=== PATIENT | female | born 1970 | race African-American/Black ===

== ENCOUNTER 2020-04-15 17:38 | Emergency (ER) | payer OTHER, SELFPAY ==
[2020-04-15 17:50] VITALS: BP 122/97; PULSE 84; RESP 16; TEMP 36.3; O2SAT 100
--- NOTE | 2020-04-15 18:02 | ED.WOUNDLAC ---
HPI - Wound/Laceration General Chief Complaint: Wound/Laceration Stated Complaint: Foreign Abcess/ear pain Source: patient and RN notes reviewed Mode of arrival: ambulatory Limitations: no limitations History of Present Illness HPI narrative: The obese patient, previously mostly healthy, presents with skin eruption. Patient states she has 1/2-month history of pink, tender, slightly raised inflammation where she shaves on her buttocks. They have spontaneously improved or ruptured with soaks and tea tree oil--but are still slightly inflamed,like a prior episode she had anteriorly along her perineum. No fever, streaking, fluctuance/induration; symptoms mild worse with palpation Related Data Home Medications Medication Instructions Recorded Confirmed levothyroxine 150 mcg tablet 150 mcg PO DAILY 10/20/19 04/15/20 Allergies Allergy/AdvReac Type Severity Reaction Status Date / Time aspirin AdvReac Mild STOMACH Verified 10/20/19 15:13 ISSUES ibuprofen AdvReac Mild ACID REFLUX Verified 10/20/19 15:13 Review of Systems Review of Systems: Narrative: General/Constitutional: No weight loss,fever Eyes: N0: Redness,discharge Ears/Nose/Throat: No: Epistaxis,ear discharge Respiratory: Denies: Hemoptysis Gastrointestinal: No Vomiting, Bleeding-rectal Skin: No Lumps, eruption Neurologic: No Focal Weakness,Sz Hematologic: Denies: Petechiae/Purpura Psychiatric: No: Suicida ideationl All Other Systems: Reviewed and Negative [facility] Social History Social History Smoking status: Never smoker Alcohol intake: current Comments At time of signature, agree with nursing past medical, surgical, social and family history. There is no relevant family history pertinent to the presenting complaint Exam Narrative: Exam Narrative: General Appearance: Cooperative Normocephalic Eye: PERRLA, Conjunctiva clear Mouth/Throat: Normal appearing Supple Respiratory: Airway patent, No respiratory distress Musculoskeletal: Moves all extremities, Non tender Skin: Warm, Dry , several small inflamed but healing gluteal follicles Neurological: A&O x3 Normal affect Course Vital Signs Vital signs: Vital Signs Temperature 97.4 F L 04/15/20 17:50 Pulse Rate 84 04/15/20 17:50 Respiratory Rate 16 04/15/20 17:50 Blood Pressure 122/97 H 04/15/20 17:50 Pulse Oximetry 100 04/15/20 17:50 Temperature 97.4 F L 04/15/20 17:50 Pulse Rate 84 04/15/20 17:50 Respiratory Rate 16 04/15/20 17:50 Blood Pressure 122/97 H 04/15/20 17:50 Pulse Oximetry 100 04/15/20 17:50 Procedures Abscess I/D other: Date of Incision: 04/15/20 Technique: needle aspiration Amount of fluid expressed (mL): 1 Irrigation: No Packing used?: none I&D Results: Pus and Blood Discharge Plan Discharge Clinical Impression: Folliculitis Patient Disposition: Home, Self-Care Condition: Stable Instructions: Antibiotic Form, Folliculitis (ED), Abscess (ED) Prescriptions: New clindamycin HCl 300 mg capsule 300 mg PO Q6H Qty: 15 RF: 0 mupirocin 2 % ointment 1 applic TOPICAL TID Qty: 30 RF: 0 No Action levothyroxine 150 mcg tablet 150 mcg PO DAILY RF: 0 Follow-up/Referrals: PHYSICIAN NOT ON STAFF,NONSTAFF [Primary Care Provider] - Discharge Date/Time: 04/15/20 18:16
== END 2020-04-15 18:16 | disposition home or self-care (01) ==
PROVIDERS: Emergency Provider Emergency Medicine
DX: L73.9 Follicular disorder, unspecified (principal); E03.9 Hypothyroidism, unspecified
CPT/HCPCS: 10140; 99213; G0463

== ENCOUNTER 2022-04-01 08:33 | Outpatient (CLI) | payer OTHER, SELFPAY ==
--- NOTE | ~2022-04-01 | MM_ITS ---
EXAMINATION: MM screening [facility] BI w linda HISTORY: Screening mammogram TECHNIQUE: Craniocaudal and mediolateral oblique 3-D tomosynthesis images were obtained and synthetic 2-D images were generated. CAD analysis was submitted and interpreted. COMPARISON: 03/07/2018, 04/30/2015, 08/09/2012 BREAST PARENCHYMAL COMPOSITION: The breasts are heterogeneously dense, which may obscure small masses . FINDINGS: There is no suspicious mass, calcification, or architectural distortion to suggest malignan cy in either breast. There has been no suspicious interval change. IMPRESSION: 1. No mammographic evidence of malignancy. 2. Recommend routine screening mammography in one year. BI-RADS Category 1: Negative Reviewed, dictated and finalized at location A.
== END 2022-04-01 08:34 | disposition home or self-care (01) ==
PROVIDERS: Visit Provider Nurse Practitioner
DX: Z12.31 Encounter for screening mammogram for malignant neoplasm of breast (principal)
CPT/HCPCS: 77063; 77067

== ENCOUNTER 2023-07-20 12:53 | Emergency (ER) | payer OTHER, SELFPAY ==
[2023-07-20 13:13] VITALS: BP 117/73; PULSE 64; RESP 16; TEMP 36.6; O2SAT 100
--- NOTE | 2023-07-20 13:15 | ED.GENADULT ---
HPI - General Adult General Chief complaint: Eye Problems Stated complaint: Left Eye Irritation, Headache,Back Irritaiton/Bump Time Seen by Provider: 07/20/23 13:15 Source: patient, RN notes reviewed and old records reviewed Mode of arrival: ambulatory Limitations: no limitations History of Present Illness HPI narrative: 52-year-old female presents to the [facility] with multiple complaints. Left eye irritation since this morning. Patient states that she looked in the urine noticed a red spot in her left eye. Denies any coughing, sneezing. Denies any blurry vision, change in vision. Denies any trauma to the eye. Headache since this morning. Took Aleve in states it is better. Denies any blurry vision, change in vision. Denies any dizziness. No sinus congestion or pain. Denies any chest pain or shortness of breath. Patient with a complaint of a swelling area to the right upper back, shoulder area, scapular area that she noticed a small 2 weeks ago. Pain when palpation and movement of the area. Area is soft, res. No ecchymosis or erythema. Related Data Home Medications Medication Instructions Recorded Confirmed levothyroxine 150 mcg tablet 150 mcg PO DAILY 10/20/19 07/20/23 empagliflozin 10 mg tablet 10 mg 07/20/23 (Jardiance) semaglutide 0.25 mg or 0.5 mg (2 mg subcut 07/20/23 mg/3 mL) subcutaneous pen injector (Ozempic) Allergies Allergy/AdvReac Type Severity Reaction Status Date / Time aspirin AdvReac Mild STOMACH Verified 07/20/23 13:34 ISSUES ibuprofen AdvReac Mild ACID REFLUX Verified 07/20/23 13:34 Review of Systems Review of Systems: All systems reviewed & are unremarkable except as noted in HPI and below Constitutional: Constitutional: Reports no additional constitutional complaints Eyes: Eyes: Reports as per HPI, Denies blind spots, Denies blurry vision, Denies eye discharge, Denies dry eyes, Denies floaters, Denies irritation, Denies itchy eyes, Denies loss of vision and Denies photophobia ENT: Reports system reviewed and no additional complaints, except as documented Cardiovascular: Cardiovascular: Reports no additional cardiovascular complaints, Denies chest pain and Denies dyspnea Respiratory: Respiratory: Reports no additional respiratory complaints, Denies chest congestion, Denies cough and Denies dyspnea Gastrointestinal: Gastrointestinal: Reports no additional gastrointestinal complaints, Denies abdominal pain, Denies nausea and Denies vomiting Musculoskeletal: Musculoskeletal: Reports no additional musculoskeletal complaints Integumentary/Breasts: Skin/Breast: Reports as per HPI Neurologic: Reports system reviewed and no additional complaints, except as documented Psychiatric: Psychiatric: Reports no additional psychiatric complaints Allergic/Immunologic: Allergic/Immunologic: Reports no additional allergic/immunologic complaints PMF Past Medical History Medical History (Updated 07/21/23 @ 12:02 by Chaparrita Mccain APRN) Thyroid disease Surgical History Surgical History History of appendectomy History of cholecystectomy Family History Family History Other Family history of lung cancer Family history of malignant neoplasm of brain Family history of malignant neoplasm of male breast Social History Social History Smoking status: Never smoker Alcohol intake: current Comments At the time of my signature, I reviewed and agree with the nursing past medical, surgical, social, and family history. There is no relevant family history pertinent to the patient complaint. Exam Const: General: cooperative, healthy appearing, comfortable, no acute distress, well developed, alert and well nourished Nutritional Appearance: well nourished Orientation/consciousness: patient oriented x3 Limitations: no
--- NOTE | 2023-07-20 13:45 | PC.NURSE ---
MID WIFE at bedside performing I&D.
== END 2023-07-20 14:01 | disposition home or self-care (01) ==
PROVIDERS: Emergency Provider Nurse Practitioner
DX: H11.32 Conjunctival hemorrhage, left eye (principal); R51.9 Headache, unspecified; D17.1 Benign lipomatous neoplasm of skin and subcutaneous tissue of trunk; E07.9 Disorder of thyroid, unspecified
CPT/HCPCS: 21931; 99212; G0463

== ENCOUNTER 2024-10-12 15:35 | Emergency (ER) | payer OTHER, SELFPAY ==
--- OUTSIDE RECORDS SUMMARY | 2024-10-12 15:37 | XMS_ITS | Referral Summary ---
Author Organization [facility] Address [address] [place] [address] Care Team Providers Care Cork Insulator Helper Name Role Phone Claudine Jimenez [employer] MECH[employer] Primary Care P barb Unavailable Source Comments [facility],non-owned Affiliates and Associated Physician Practices is amultiple site organization consisting of ambulatory clinics and hospital sitesin [place], [place], [place] and [place]. This disclosure is being madepursuant to the Care Everywhere program and may not contain all information available regarding this patient. Last updated [email or web address] Social History Tobacco Use Types Packs/Day Years Used Date Smoking Tobacco: Never Assessed Sex and Gender Information Value Date Recorded Sex Assigned at Not on file Gender Identity Not on file Sexual Orientation Not on file Plan of Treatment Not on file Procedures Procedure Name Priority Date/Time Associated Diagnosis Comments CYTOLOGY SMEAR PAP PEGGY 03/07/1997 10 :58 AM CDT from Last 3 Months or Most Recently Relevant to Health Maintenance Results * CYTOLOGY SMEAR PAP (03/07/1997 10:58 AM CDT) Result CASE NUMBER [id number] Comment: ORDERING PHYSICIAN FELISA BLAKE [facility] SPECIMEN TYPE PAP Smear Date 03/06/1997 Procedure Cervical/Endocervical, 1 smear received Specimen Adequacy Satisfactory for Evaluation Categorization Within Normal Limits Comment Inflammation Present. Sn[place]. 03/13/1997 1109 <2> Squaring Shear Operator Easton Doherty(ASCP) PAP Footnote The PAP smear is only a screening procedure to aid in the detection of cervical cancer and its precursors. It is not a diagnostic procedure and should not be used as the sole means to detect cervical cancer. Both false negative and false positive results have been experienced. MISCELLANEOUS SAMPLES / Unknown 03/07/1997 10:58 AM CDT 03/07/1997 10:58 AM CDT Historical Provider LAB - PATHOLOGY/C YTOLOGY ORDERABLES from Last 3 Months or Most Recently Relevant to Health Maintenance Care Teams Cork Insulator Helper Relationship Specialty Start Date End Date Claudine Jimenez APRN-EAN PCP - General 02/21/18
--- OUTSIDE RECORDS SUMMARY | 2024-10-12 15:37 | XMS_ITS | Data Portability ---
Author Organization [facility] Address [address] [place] [address] Care Team Providers Care News Videotape Editor Name Role Phone PHILIP VELA Primary Care Provider Assessment Encounter Date Assessment Date Assessment LastModified by Organization Details LastModified Time 07/07/2020 07/07/2020 Annual gynecological exam performed. Patient will come back in a year unless there are new symptoms. [email or web address] Not available 07/07/2020 11:49:14 02/13/2022 02/13/2022 Annual gynecological exam performed. Patient will come back in a year unless there are new symptoms. Not available 01/24/2022 16:08:38 10/08/2023 10/08/2023 Annual gynecological exam performed. Patient will come back in a year unless there are new symptoms. [email or web address] Not available 10/08/2023 09:35:27 Plan of Treatment Reminders Order Date Submit Date Provider Last Modified By Organization Details Last Modified Time Details Appointments [facility] 2024 05:30P M LUIS KEITH, DRILLER BRAKE LINING Not available Not available Not available Lab urinaly sis, dipstic k 2019 020 [email or web address] [facility], [address], [address], [place], [address], 06/23/2020 21:43:22 culture , urine 2019 020 [facility] ([facility]), [address] [facility] [address] , [address], [place], [address], 06/25/2020 06:05:39 Referral None recorde d. Procedures None recorde d. Surgeries None recorde d. Imaging MAMMO, screeni ng, digital , bilater al 2023 024 [facility], [address], [place], [address], 04/13/2024 05:00:58 MAMMO, screeni ng, bilater al 2021 022 [email or web address] [facility], [address], [place], [address], 03/24/2022 16:19:46 Medication Orders None recorde d. Patient TargetsNo targets recorded. Patient InstructionsNo instructions recorded. Reason for Referral None Reported. Results Created Date Observation Date Name Description Value Unit Range Abnormal Flag Note LastModifiedBy Organization Detail LastModifiedTime 06/23/2006/25/2020 cultu re, urine specimen source Urine - Void Not Available [facility] ([facility]) [address] [facility] [address], [place], [address], 06/25/2020 06:05:39 06/23/2006/25/2020 cultu re, urine culture, urine See Below No growt h Not Available [facility] ([facility]) [address] [facility] [address], [place], [address], 06/25/2020 06:05:39 06/23/2006/23/2020 urina lysis , dipst ick Leukocytes trace Not Available [facility] [address], [place], [address], 06/23/2020 18:12:33 06/23/2006/23/2020 urina lysis , dipst ick pH 9 Not Available [facility] [address], [place], [address], 06/23/2020 18:12:33 10/28/20 20 06/23/2020 urina lysis , dipst ick Specific [place] 1.000 Not Available [facility] [address], [place], [address], 06/23/2020 18:12:33 07/07/20 20 07/09/2020 pap, LB Pap test thin prep Negati ve for Intrae pithel ial Lesion or Malign oscar normal ACCES LENCHO #: [id number] Sourc e: Cervi rama/E ndoce rvica l LMP: 06/15 Date Taken : 07/07 Speci men Type: ThinP rep Vial Date Repor ashley: 07/09 Clini rama Data: Cytot ech: Rahat Fowler z, CT( CP) Date Repor ashley: 07/09 Speci men Adequ acy: Satis facto ry for evalu ation Endoc ervic al/tr ansfo rmati on zone compo nent prese nt Gener al Categ oriza tion: NEGAT FRIDA FOR INTRA EPITH ELIAL LESIO N OR MALIG CLAIRE This speci men has been angela zed by the ThinP rep Imagi ng Syste m, an inter activ e compu ter syste m which bridget ts the lab in the scree mariana of ThinP rep Pap Test slide sKimberley barrientos imagi ng, the slide was revie wed by a Cytot echno logis t and/o r Patho logis t. D N A A S S A Y S R E P O R T TEST NAME RESUL TS ----- ---- ----- -- HPV High Risk Scree n (TMA) ThinP rep Vial The human papil lomav irus (HPV) High Risk Scree n is an FDA-a pprov ed in-vi tro ampli fied nucle ic acid test for the quali tativ e detec tion of E6/E7 viral mRNA. Resul ts mauricio d be corre lated with patie nt prese ntati on, histo ry, cervi rama cytol ogy and other clini rama and labor atory findi ngs. See https ://ww w.hol ogic. com/s ites/ defau lt/fi les/2 018-0 3/AW- 70593 _002_ 01.pd f for jerel er infor shashi n. Test perfo rmed by [facility], [address], [place] [address] , Diallo Polk ra, DO, Labor at[facility]PowerVision Dire tor. HPV High Risk *HPV NOT DETEC ASHLEY (TYPE S 16, 18, 31, 33, 35, 39, 45, 51, 52, 56, 58, 59, 66, 68) *HPV: The human papil lomav irus (HPV) High Risk Jean-Paul benites is an FDA-a pprov ed in-vi tro ampli fied nucle ic acid test for the quali tativ e detec tion of E6/E7 viral mRNA. Resul ts shoul d be corre lated with patie nt prese ntati on, histo ry, cervi rama cytol ogy and other clini rama and labor atory findi ngs. See https ://3Funnel. Inline.me/s ites/ defau lt/fi -0 3AW- 34963 _002_ 01.pd f for jerel er infor shashi n. Test perfo rmed by [facility] [employer], [address], [place] [address] , Diallo Polk ra, DO, Labor [facility]. End of Repor t Techn ical servi marisel provi ded by [facility], [facility], [address] [place] [address] John Paul Gomes MD, Labor Pins [facility]. Case revie wed and diagn osis rende red at [facility] [facility], [address] [place] [address] John Paul Gomes MD, Labor [facility] D[facility]. CONFI DENTI AL Not Available [facility] ([facility]) [address], [place], [address], 07/09/2020 09:58:30 07/07/20 20 07/09/2020 HPV DNA, high- risk HPV high risk NOT DETECT ED normal Not Available [facility]) [address], [place], [address], 07/09/2020 09:58:31 02/14/20 22 02/13/2022 IMAGE GUIDE D PAP AND HPV REGAR DLESS image guided Pap, HPV regardless of Pap result SEE RESULT S BELOW CASE REPOR T: Cytol ogy Gynec ologi rama Repor t Case: [id number] Autho chungkamari myrna Provi edna: Elidia Melara, TANISHA Colle cted: 02/13 1408 Order ing Locat ion: [place] [facility] Recei larry: 02/14 0136 First Scree n: Nikita Robins , CT Speci men: Scree mariana Pap - Image d, Cervi x STATE MENT OF ADEQU ACY: Satis facto ry for evalu ation Trans forma tion zone compo nent prese nt FINAL DIAGN OSIS: Negat frida for Intra epith elial Lesranjeet n or Shelley salazar (NIL) . Kandace hess d by Nikita Robins , CT on 2021 at 8:38 PM ----- ----- ----- ----- ----- ----- ----- ----- ----- ----- ----- ----- ----- ----- ----- ----- ----- ---- HPV RESUL TS: HPV mRNA E6/E7 : No HPV mRNA Detec ashley NOTE: This high risk HPV mRNA assay detec ts fourt een high- risk HPV types (16, 18, 31, 33, 35, 39, 45, 51, 52, 56, 58, 59, 66, 68) witho ut diffe renti ation . COMME NT: Note: This speci men was revie wed by a Cytot echno logis t and/o r Patho logis t (as indic ated in this repor t) after evalu ation using the Thinp rep Imagi ng Syste m. CLINI RAMA INFOR MATIO N: Menst rual Statu s: LMP (if appli cable ): Clini rama Histo ry/Pr eviou s Pap: Type of Neopl abran (if appli cable ): Signi fican t Clini rama Findi ngs: Other Histo ry: Hormo shaheen (if appli cable ): PAP EDUCA SUZE L NOTE: The Pap Test is a scree mariana test with an inher ent false negat frida rate. Liqui d-bas ed sampl ing may decre ase, but will not elimi chele, false negat frida resul ts. A negat frida resul t does not precl ude the prese nce and/o r devel opmen t of disea se, since the prese nce of abnor mal cells in the sampl e depen ds on the locat ion of the lesio n and sampl ing techn ique. Maday nued regul ar scree mariana is the best metho d of cance r preve ntion . If repor ashley cytol ogic findi ng do not corre late with physi rama and/o r histo rical findi ngs, furth er inves tigat ion is recom mikey d, as clini cindy graham nted. Not Available [facility] (Lab) [address], [place], [address], 02/15/2022 21:41:16 04/03/20 22 04/01/2022 MAMMO , scree mariana, bilat eral No observ ation record ed. [facility] [address] [facility] [address], [place], [address], 04/04/2022 12:16:39 Result Notes None recorded. Problems Name Problem SNOMED Code Status Onset Date Resolution Date Notes Provider Name and Address Organization Details Recorded Time Susie thyroiditis 15030287 Active 2021 Korin Boone [facility] 2 11:43:58 Diabetes mellitus 88235816 Active 2023 Aye Argueta [facility] 4 09:36:33 Hypertensive disorder 78040765 Active 2023 Aye Argueta [facility] 4 09:36:38 Problem Notes None recorded. Procedures Surgical History Date Name Laterality Status Provider Name and Address Organization Details Recorded Time 10/08/19 24 Date of Last Pap Smear completed [facility] 10/08/2023 09:36:49 09/22/19 14 Dilation and Curettage completed [facility] 10/09/2023 17:25:51 08/27/19 06 termination of completed [facility] 10/09/2023 17:23:59 08/27/19 05 termination of completed [facility] 10/09/2023 17:23:56 08/27/18 98 termination of completed [facility] 10/09/2023 17:23:52 08/27/18 97 extraction of wisdom tooth completed Aye Argueta [facility] 10/08/2023 09:40:46 08/27/18 93 Cholecystectomy completed [facility] 02/13/2022 11:35:36 08/27/18 87 Appendectomy completed [facility] 02/13/2022 11:35:27 Imaging Results Imaging Date Name Status LastModified by Organiz ation Details LastModified Time 04/01/2022 MAMMO, screening, bilateral completed [address] [facility] [address], [place], [address], 04/04/2022 12:16:39 Procedure Notes None recorded. Medical Equipment None Reported. Allergies Allergen ID Allergen Name Allergen Category Reaction Reaction Severity Criticality Documentation Date Start Date Code Code System Note Provider Name and Address Organization Details Recorded Time 2531 aspirin medicatio n Not available Not available Not available 06/23/2020 1191 RxNorm Andria [facility] 0 17:54:13 2531 ibuprofen medicatio n Not available Not available Not available 06/23/2020 5640 RxNorm Andria [facility], [facility] 0 17:54:36 Medications Name Sig Start Date Stop Date Status Note LastModified by Organization Details LastModified Time atorvasta tin 40 mg tablet active Not Available Not Available Not Available levothyro xine 175 mcg tablet take 1 tablet by oral route every day active Not Available Not Available No t Available clindamyc in HCl 300 mg capsule TK 1 C PO Q 6 HOURS. STOP IF DH OCCURS 07/07 completed Not Available Not Available Not Available fluconazo le 150 mg tablet TK 1 T PO ONCE 1 DOSE 07/07 completed Not Available Not Available Not Available hydrocodo ne 5 mg-acetam inophen 325 mg tablet TAKE 1 TABLET BY MOUTH EVERY 4 TO 6 HOURS NEEDED FOR PAIN 02/13 completed Not Available Not Available Not Available minocycli ne 100 mg capsule take 1 capsule (100MG) by oral route every 12 hours 09/25 completed Prescrib ed Elsewher e: No Locat ion: Rachelle hines [facility] M odify By: jasno elkins DateTime : 09/22/19 14 12:06:37 PM Not Available Not Available Not Available penicilli n V potassium 500 mg tablet TAKE 1 TABLET BY MOUTH 4 TIMES DAILY UNTIL GONE 02/13 completed Not Available Not Available Not Available triamcino lone acetonide 0.5 % topical ointment APPLY 1 APPLICAT ION TO BOTH EARS TWICE DAILY 02/13 completed Not Available Not Available Not Available metronida zole 500 mg tablet TK 1 T PO BID FOR 7 DAYS UTD 07/07 completed Not Available Not Available Not Available amoxicill in 500 mg tablet take 1 tablet by oral route 3 times every day for 10 days 06/28 completed Prescrib ed Elsewher e: No Locat ion: Rachelle hines [facility] odify By: mao elkins DateTime : 06/19/20 17 09:22:40 AM Not Available Not Available Not Available potassium 99 mg tablet 09/25 completed Prescrib ed Elsewher e: Yes [facility] By: jason elkins DateTime : 09/11/19 14 05:15:00 PM Not Available Not Available Not Available Metrogel Vaginal 0.75 % (37.5 mg/5 gram) insert 1 applicat orful by vaginal route every day at bedtime x 5 nights 02/13 completed Prescrib ed Elsewher e: No Locat ion: [facility] odify By: sandip Hines [email or web address] DateTime : 03/12/20 19 09:31:47 AM Not Available Not Available Not Available OneTouch Ultra Test strips active Not Available Not Available Not Available levothyro xine 125 mcg tablet take 1 tablet by oral route every day 03/04 completed Prescrib ed Elsewher e: No Locat ion: Jialuisa hines [facility] odify By: [email or web address] Encount er DateTime : 03/04/20 19 09:30:00 AM Not Available Not Available Not Available levothyro xine 150 mcg tablet TAKE 1 TABLET BY MOUTH EVERY DAY 10/08 completed Not Available Not Available Not Available Valtrex 500 mg tablet take 1 tablet by oral route 1 times every 12 hours x 3 days 02/13 completed Prescrib ed Elsewher e: No Locat ion: [facility] odify By: laura pham DateTime : 03/04/20 19 09:30:00 AM Not Available Not Available Not Available mupirocin 2 % topical ointment CJ EXT AA TID 07/07 completed Not Available Not Available Not Available Jardiance 10 mg tablet active Not Available Not Available Not Available Prabhu [facility] U-100 Insulin 100 unit/mL (3 mL) subcutane ous INJECT 5 UNITS UNDER THE SKIN EVERY EVENING 10/08 completed Not Available Not Available Not Available Ozempic 0.25 mg or 0.5 mg (2 mg/1.5 mL) subcutane ous pen injector 10/08 completed Not Available Not Available Not Available Ozempic 0.25 mg or 0.5 mg (2 mg/3 mL) subcutane ous pen injector active Not Available Not Available Not Available Vitals Date Recorded Body height Body mass index (BMI) Body weight Systolic blood pressure Diastolic blood pressure Provider Name and Address Organization Details Last Updated DateTime 02/13/2022 166.37 cm 36.9 kg/m2 231930.2 8 g 121 mm[Hg] 75 mm[Hg] Korin Monetse [facility] 2 11:43:25 Date Recorded Body height Body mass index (BMI) Body weight Systolic blood pressure Diastolic blood pressure Provider Name and Address Organization Details Last Updated DateTime 10/08/2023 166.37 cm 32.4 kg/m2 69948.29 g 129 mm[Hg] 78 mm[Hg] Aye Argueta [facility] 4 09:35:46 Date Recorded Body height Body mass index (BMI) Body weight Systolic blood pressure Diastolic blood pressure Provider Name and Address Organization Details Last Updated DateTime 07/07/2020 166.37 cm 34.9 kg/m2 86782.17 g 118 mm[Hg] 78 mm[Hg] Corinna Carver [facility] 0 11:55:35 Social History Question Answer Notes LastModified by Organizat ion Details LastModified Time Tobacco Smoking Status Never Smoker Korin Boone [facility], [facility] 02/13/2022 11:35:15 What Is Your Level Of Alcohol Consumption? Occasional Information not available 02/13/2022 Are You Blind Or Do You Have Difficulty Seeing? No Information n ot available 02/13/2022 In The 14 Days Before Symptom Onset, Have You Had Close Contact With A Laboratory-confirm ed COVID-19 While That Case Was Ill? No [email or web address] Information n ot available 10/08/2023 In The 14 Days Before Symptom Onset, Have You Had Close Contact With A Person Who Is Under Investigation For COVID-19 While That Person Was Ill? No [email or web address] Information not available 10/08/2023 Have You Been To An Area Known To Be High Risk For COVID-19? No [email or web address] Information not available 10/08/2023 Are You Deaf Or Do You Have Serious Difficulty Hearing? No Information not available 02/13/2022 What Type Of Diet Are You Following? REGULAR Information n ot available 02/13/2022 Have You Ever Been Counseled For Unhealthy Alcohol Use? No [email or web address] Information not available 10/08/2023 Do You Use Your Seat Belt Or Car Seat Routinely? Yes [email or web address] Information not available 10/08/2023 Do You Have Smoke And Carbon Monoxide Detectors In Your Home? Yes [email or web address] Information not available 10/08/2023 Do You Feel Stressed (tense, Restless, Nervous, Or Anxious, Or Unable To Sleep At Night)? [id number] [email or web address] Information not available 10/08/2023 Do You Use Any Illicit Or Recreational Drugs? No Information not available 10/08/2023 Do You Use Sunscreen Routinely? Yes [email or web address] Information not available 10/08/2023 Has Tobacco Cessation Counseling Been Provided? No [email or web address] Information not available 10/08/2023 Do You Or Have You Ever Used Any Other Forms Of Tobacco Or Nicotine? No [email or web address] Information not available 10/08/2023 Sex: Unknown Functional Status Question Answer Note LastModified by Organizat ion Details LastModified Time Do you have difficulty walking or climbing stairs? No Information not available 02/13/2022 Are you able to walk? YESWOREST Information not available 02/13/2022 Are you able to care for yourself? Yes Information not available 02/13/2022 Do you have difficulty dressing or bathing? No Information not available 02/13/2022 What is your exercise level? Occasional Information not available 02/13/2022 Mental Status None recorded. Family History Relationship Description Onset Age of this Age Resolved Age Notes LastModified by Organization Details LastModified Time Brother Asthma Not available 0 02/13/2022 11:34:12 Mother Asthma Not available 11:34:14 Mother Diabetes mellitus Not available 2021 11:34:40 Maternal Grandfather Diabetes mellitus Not available 2021 11:34:40 Maternal Uncle Diabetes mellitus Not available 2021 11:34:40 Maternal Aunt Diabetes mellitus Not available 2021 11:34:40 Father Heart disease Not available 2021 11:35:02 Paternal Grandmother Heart disease Not available 2021 11:35:02 Medical History Condition Response Allergies (Food, seasonal, environmental ) N Other N Breast Cancer N Drug/Latex Allergies/Reactions N Blood Transfusion N Dermatologic Disorders N Lung Disease N Defects or Inherited Disease N Breast Problem N Gestational Diabetes Y Hematologic disorders N Anesthesia Complications N History of STI Y Deep Vein Thrombosis N Polycystic ovary syndrome N Anxiety Disorder N Autoimmune disease N Arthritis N Infertility N Polyps N Acid Reflux (GERD) N History of abnormal pap N Cancer N Stroke N Varicosities N Neurologic/Epilepsy N Endometriosis N High Cholesterol Y Headaches N Fibromyalgia N Kidney Disease N Heart Problems N Kidney or Bladder Problems N Thyroid Problems Y GI Problems N Eating Disorder N Anemia N Art (IVF or FET) N Psychiatric Illness N Ovarian Cancer N Diabetes Y Pulmonary (TB, Asthma) N Hepatitis/Liver Disease N No Past Medical History N Eczema N Urinary Tract Infection N Abuse/Domestic Violence N Asthma N Trauma/Violence N Depression/ depression N Heart Disease N Pre-Eclampsia N Hypertension Y Osteoporosis N Thrombophilias N Gynecological History Statement/Question Response Abnormal Pap N Flow Heavy Date of Last Mammogram Date of LMP 05/27/2023 STIs/STDs Y HPV Vaccine N Duration of Flow (days) 6 Current Control Method Menopause Sexually Active? Y Date of DEXA bone scan Age of first menstrual cycle 14 Date of Last Pap Smear 10/08/2023 Sexual Problems? N LMP Definite Obstetrics History GPAL:G 9 P 4 0 5 4 Type Value Full Term 4 Induced 3 Spontaneous 2 Living 4 Total 9 Past Encounters Encounter ID Performer Location Encounter Start Date Encounter Closed Date Diagnosis/Indication Diagnosis SNOMED-CT Code Diagnosis ICD10 Code Diagnosis Note [id number] Waylon Byrne MD [facility] [address] [address] 06/23/2020 17:55:08 06/23/2020 18:24:56 Leukocytes in urine 477869973 R82.79 Urinary symptoms 7716900 08 R39.9 [id number] [facility] [address] [address] 07/07/2020 11:45:53 07/07/2020 14:05:39 Gynecologic examination 90966088 Z01.419 Suggested Calcium with Vitamin D 1200-1500m g daily. Patient advised to get an annual flu shot in the fall and she could obtain at [facility] or [facility] care clinic. Also to obtain TDap vaccinatio n if you have not had one in the last 10 years. Recommend yearly mammograms . Encouraged monthly self breast exams. Encourage safe sexual practices, to use condoms and limit partners if not already in a monogamous relationsh ip. Engage in daily exercise of low impact aerobic exercise 45-60 minutes 4-5 times weekly. Avoid tobacco and illicit drugs as well as using moderation with alcohol intake less than 1-2 8 oz beverages daily. This lifestyle behavior pattern will lead to less health conditions and longer life span. If BMI greater than 25 weight watchers or dietary consult advised. All questions have been answered. Patient appears to understand informatio n, but if you have any questions please call or respond to this email. Not in a relationsh ip x 1yr Norm paphpv hx Opts to have pap/hpv this year. Mammo ordered RTO x 1yr or prn Bacterial vaginosis 4197 31971 N76.0 Mentions issues with recurrent BV Tried Boric acid in the past vaginally & unable to tolerate. Reports it makes her nauseated even though it is administer ed PV. Usually happens after menses. Feeling okay today. Moving forward consider [facility] vulvar clinic referral VCG sheet given for review. [id number] PHI Lazo [facility] [address] [address] 02/13/2022 11:26:10 02/13/2022 12:21:01 Screening for malignant neoplasm of breast 184052834 Z12.39 Gynecologi c examination 36383992 Z01.419 Suggested Calcium with Vitamin D 1200-1500m g daily. Patient advised to get an annual flu shot in the fall and she could obtain at [facility] or [facility] take care clinic. Also to obtain TDap vaccinatio n if you have not had one in the last 10 years. Recommend yearly mammograms . Encouraged monthly self breast exams. Encourage safe sexual practices, to use condoms and limit partners if not already in a monogamous relationsh ip. Engage in daily exercise of low impact aerobic exercise 45-60 minutes 4-5 times weekly. Avoid tobacco and illicit drugs as well as using moderation with alcohol intake less than 1-2 8 oz beverages daily. This lifestyle behavior pattern will lead to less health conditions and longer life span. If BMI greater than 25 weight watchers or dietary consult advised. All questions have been answered. Patient appears to understand informatio n, but if you have any questions please call or respond to this email. WWENo hx of abnormal papsPap done todayNot currently sexually active, last about 7 years agoShe does get frequent BV, we discussed vulvar care guidelines . She has used boric acid in the past, that does not work for her per patient. She has no current symptoms.M ammogram order given, last mammogram 2 years agoUTD on colonoscop yUTD with PCPRTC in 1 year for WWE or sooner if needed [id number] PHI Lazo [facility] [address] [address] 10/08/2023 09:13:32 10/08/2023 10:10:40 Gynecologic examination 58857303 Z01.419 WWEpap due 2024mammog diane order givencolon oscopy UTDroutine labs UTD/PCPRTC in 1 yr or sooner if needed Take Calcium with Vitamin D daily. Do monthly self breast exams. It is advised to get annual flu shot in the fall and she could obtain at [facility] or [facility] care clinic. If you haven't received the Tdap vaccine in the last 10 years you should obtain one as well. Have mammogram yearly, bone density every 2-3 years and colonoscop y every 5-10 years depending on findings and history. Engage in daily exercise of low impact aerobic exercise 45-60 minutes 4-5 times weekly. Avoid tobacco and illicit drugs. This lifestyle behavior pattern will lead to less health conditions and longer life span. If BMI greater than 25 dietary consult advised. Questions have been answered. Patient appears to understand instructio ns, but if you have any further questions call or respond to this email Screening for malignant neoplasm of breast [id number] Z12.39 Perimenopausal state [id number] Z78.0 Discussed the perimenopa usal transition in-depthen couraged to continue to track cyclesques tions answered Health Concerns Section Related Observation LastModified by Organization Detai ls LastModified Time None Recorded Concern Status LastModified by Organization Details LastModified Time None Recorded Advance Directives Directive None Recorded Payers Encounter Date Sequence Insurance Name Policy Number Policy Elliott Covered Member ID Elliott Member ID Guarantor Name 06/23/2020 1 [employer] [id number] Emelia Campbell [id number] Emelia Campbell 07/07/2020 1 [employer] [id number] Emelia Campbell [id number] Emelia Campbell 02/13/2022 1 [employer] - DOS ON OR AFTER 21 - [place] (PPO[place] Emelia Campbell [id number] SOI Emelia Campbell 10/08/2023 1 [employer] - DOS ON OR AFTER 21 - [place] [place] Emelia Campbell [id number] SOI Emelia Campbell Notes Date Note Type Note Provider Name and Address Organization Details Recorded Time 07/07/2020 text/html Annual GYNReport ed bypatient.Menstrual cycle:Normal menses Urinary symptoms:No hematuria; No incontinence Vulva:No genital lesion Vagina:Normal vaginal discharge Breast:No breast pain; No breast lump; No nipple discharge Current Contraception: control not practiced; Not sexually active Sexual complaints:No sexual complaints; No pain during intercourse; Normal libido Menopausal Symptoms:No menopausal symptoms; Normal vaginal lubrication Psychological symptoms:No depression; No anxiety; No PMDD Preventive measures:Encourage self breast examination; Encourage regular exercise; Encourage no tobacco use; Encourage regular mammograms starting age 40; Followed with Q3 year pap smear and high risk HPV typing; Needs to schedule mammogram Mentions issues with recurrent BV Tried Boric acid in the past vaginally & unable to tolerate. Reports it makes her nauseated even though it is administered PV. Usually happens after menses. Feeling okay today. [facility], [place], [address], [facility] 07/07/2020 12:27:30 02/13/2022 text/html Annual GYNReport ed bypatient.Menstrual cycle:Normal menses Urinary symptoms:No hematuria; No incontinence Vulva:No genital lesion Vagina:Normal vaginal discharge Breast:No breast pain; No breast lump; No nipple discharge Current Contraception:Not sexually active Sexual complaints:No sexual complaints; No pain during intercourse; Normal libido Menopausal Symptoms:No menopausal symptoms; Normal vaginal lubrication Psychological symptoms:No depression; No anxiety; No PMDD Preventive measures:Encourage self breast examination; Encourage regular exercise; Encourage no tobacco use; Encourage regular mammograms starting age 40 [facility] [address], [place], [address], [facility] 02/13/2022 12:08:51 10/08/2023 text/html Annual GYNReport ed bypatient.Menstrual cycle:Perimenopausal Urinary symptoms:No hematuria; No incontinence Vulva:No genital lesion Vagina:Normal vaginal discharge Breast:No breast pain; No breast lump; No nipple discharge Current Contraception:not currently SA Sexual complaints:No sexual complaints; No pain during intercourse; Normal libido Menopausal Symptoms:No menopausal symptoms; Normal vaginal lubrication Psychological symptoms:No depression; No anxiety; No PMDD Preventive measures:Encourage self breast examination; Encourage regular exercise; Encourage no tobacco use; Encourage regular mammograms starting age 42Notes:no h/o abnormal papslast pap 01/2022 - nilm, HPV (-) perimenopausal, LMP 05/2023, has noticed a few hot flashesmammogram last 2colonoscopy UTD [facility] [address], [place], [address], [facility] 10/08/2023 09:53:22 OBGyn Episode Ob Episode Information Episode Created Date Number of Fetuses Patient Bloodtype Patient rh Status Prepregnancy Weight lbs Domestic Partner Domestic Partner Phone Father Name Quartz Miner Blasting Status 02/14/20 22 1 CLOSED Fetus Data First Name Last Name Admitted to NICU Weight (g) Sex Living Outcome Pediatric Complications Fetus ID Race Codes Race Delivery Type , Spontane ous [id number] Nick Calculation Initial Nick Date Initial Exam Date Initial Exam Provider Initial Ultrasound Date Last Menstrual Period Date Ultra Sound Weeks Gestation 0 Eighteen To Twenty Week Nick Update Ultra Sound Date Fundal Height At Umbil Quickening Date Ultra Sound Latest Weeks Gestation Final Nick Confirmed By Final Nick Confirmed Date Final Nick Date Ultra Sound Latest Days Gestation 0 0 Menstrual History Last Menstrual Date Menses Monthly On Bcp Conception Prior Menses Frequency Hcg Plus Date Menarche Onset Age Delivery Information Delivery Date Delivery Type Labor Anesthesia Weeks Gestation Incision Type Labor Labor Length Hrs Delivered By Post Complications Tubal Sterilization Discharge Date Comments 4 Discharge Information Feeding Method Contraceptive Method Maternal HG B and HCT Levels Ob Episode Information Episode Created Date Number of Fetuses Patient Bloodtype Patient rh Status Prepregnancy Weight lbs Domestic Partner Domestic Partner Phone Father Name Quartz Miner Blasting Status 02/14/20 22 1 CLOSED Fetus Data First Name Last Name Admitted to NICU Weight (g) Sex Living Outcome Pediatric Complications Fetus ID Race Codes Race Delivery Type 3600.15 9704 M Full Term [id number] Vaginal Delivery Nick Calculation Initial Nick Date Initial Exam Date Initial Exam Provider Initial Ultrasound Date Last Menstrual Period Date Ultra Sound Weeks Gestation 0 Eighteen To Twenty Week Nick Update Ultra Sound Date Fundal Height At Umbil Quickening Date Ultra Sound Latest Weeks Gestation Final Nick Confirmed By Final Nick Confirmed Date Final Nick Date Ultra Sound Latest Days Gestation 0 0 Menstrual History Last Menstrual Date Menses Monthly On Bcp Conception Prior Menses Frequency Hcg Plus Date Menarche Onset Age Delivery Information Delivery Date Delivery Type Labor Anesthesia Weeks Gestation Incision Type Labor Labor Length Hrs Delivered By Post Complications Tubal Sterilization Discharge Date Comments 7 40 Discharge Information Feeding Method Contraceptive Method Maternal HG B and HCT Levels Ob Episode Information Episode Created Date Number of Fetuses Patient Bloodtype Patient rh Status Prepregnancy Weight lbs Domestic Partner Domestic Partner Phone Father Name Quartz Miner Blasting Status 02/14/20 22 1 CLOSED Fetus Data First Name Last Name Admitted to NICU Weight (g) Sex Living Outcome Pediatric Complications Fetus ID Race Codes Race Delivery Type 2834.95 M Full Term [id number] Vaginal Delivery Nick Calculation Initial Nick Date Initial Exam Date Initial Exam Provider Initial Ultrasound Date Last Menstrual Period Date Ultra Sound Weeks Gestation 0 Eighteen To Twenty Week Nick Update Ultra Sound Date Fundal Height At Umbil Quickening Date Ultra Sound Latest Weeks Gestation Final Nick Confirmed By Final Nick Confirmed Date Final Nick Date Ultra Sound Latest Days Gestation 0 0 Menstrual History Last Menstrual Date Menses Monthly On Bcp Conception Prior Menses Frequency Hcg Plus Date Menarche Onset Age Delivery Information Delivery Date Delivery Type Labor Anesthesia Weeks Gestation Incision Type Labor Labor Length Hrs Delivered By Post Complications Tubal Sterilization Discharge Date Comments 2 40 Discharge Information Feeding Method Contraceptive Method Maternal HG B and HCT Levels Ob Episode Information Episode Created Date Number of Fetuses Patient Bloodtype Patient rh Status Prepregnancy Weight lbs Domestic Partner Domestic Partner Phone Father Name Quartz Miner Blasting Status 02/14/20 22 1 CLOSED Fetus Data First Name Last Name Admitted to NICU Weight (g) Sex Living Outcome Pediatric Complications Fetus ID Race Codes Race Delivery Type , Induced [id number] Nick Calculation Initial Nick Date Initial Exam Date Initial Exam Provider Initial Ultrasound Date Last Menstrual Period Date Ultra Sound Weeks Gestation 0 Eighteen To Twenty Week Nick Update Ultra Sound Date Fundal Height At Umbil Quickening Date Ultra Sound Latest Weeks Gestation Final Nick Confirmed By Final Nick Confirmed Date Final Nick Date Ultra Sound Latest Days Gestation 0 0 Menstrual History Last Menstrual Date Menses Monthly On Bcp Conception Prior Menses Frequency Hcg Plus Date Menarche Onset Age Delivery Information Delivery Date Delivery Type Labor Anesthesia Weeks Gestation Incision Type Labor Labor Length Hrs Delivered By Post Complications Tubal Sterilization Discharge Date Comments 8 Discharge Information Feeding Method Contraceptive Method Maternal HG B and HCT Levels Ob Episode Information Episode Created Date Number of Fetuses Patient Bloodtype Patient rh Status Prepregnancy Weight lbs Domestic Partner Domestic Partner Phone Father Name Quartz Miner Blasting Status 02/14/20 22 1 CLOSED Fetus Data First Name Last Name Admitted to NICU Weight (g) Sex Living Outcome Pediatric Complications Fetus ID Race Codes Race Delivery Type , Induced [id number] Nick Calculation Initial Nick Date Initial Exam Date Initial Exam Provider Initial Ultrasound Date Last Menstrual Period Date Ultra Sound Weeks Gestation 0 Eighteen To Twenty Week Nick Update Ultra Sound Date Fundal Height At Umbil Quickening Date Ultra Sound Latest Weeks Gestation Final Nick Confirmed By Final Nick Confirmed Date Final Nick Date Ultra Sound Latest Days Gestation 0 0 Menstrual History Last Menstrual Date Menses Monthly On Bcp Conception Prior Menses Frequency Hcg Plus Date Menarche Onset Age Delivery Information Delivery Date Delivery Type Labor Anesthesia Weeks Gestation Incision Type Labor Labor Length Hrs Delivered By Post Complications Tubal Sterilization Discharge Date Comments 5 Discharge Information Feeding Method Contraceptive Method Maternal HG B and HCT Levels Ob Episode Information Episode Created Date Number of Fetuses Patient Bloodtype Patient rh Status Prepregnancy Weight lbs Domestic Partner Domestic Partner Phone Father Name Quartz Miner Blasting Status 02/14/20 22 1 CLOSED Fetus Data First Name Last Name Admitted to NICU Weight (g) Sex Living Outcome Pediatric Complications Fetus ID Race Codes Race Delivery Type 4082.32 8 M Full Term [id number] Vaginal Delivery Nick Calculation Initial Nick Date Initial Exam Date Initial Exam Provider Initial Ultrasound Date Last Menstrual Period Date Ultra Sound Weeks Gestation 0 Eighteen To Twenty Week Nick Update Ultra Sound Date Fundal Height At Umbil Quickening Date Ultra Sound Latest Weeks Gestation Final Nick Confirmed By Final Nick Confirmed Date Final Nick Date Ultra Sound Latest Days Gestation 0 0 Menstrual History Last Menstrual Date Menses Monthly On Bcp Conception Prior Menses Frequency Hcg Plus Date Menarche Onset Age Delivery Information Delivery Date Delivery Type Labor Anesthesia Weeks Gestation Incision Type Labor Labor Length Hrs Delivered By Post Complications Tubal Sterilization Discharge Date Comments 9 40 Discharge Information Feeding Method Contraceptive Method Maternal HG B and HCT Levels Ob Episode Information Episode Created Date Number of Fetuses Patient Bloodtype Patient rh Status Prepregnancy Weight lbs Domestic Partner Domestic Partner Phone Father Name Quartz Miner Blasting Status 02/14/20 22 1 CLOSED Fetus Data First Name Last Name Admitted to NICU Weight (g) Sex Living Outcome Pediatric Complications Fetus ID Race Codes Race Delivery Type 3628.73 6 M Full Term [id number] Vaginal Delivery Nick Calculation Initial Nick Date Initial Exam Date Initial Exam Provider Initial Ultrasound Date Last Menstrual Period Date Ultra Sound Weeks Gestation 0 Eighteen To Twenty Week Nick Update Ultra Sound Date Fundal Height At Umbil Quickening Date Ultra Sound Latest Weeks Gestation Final Nick Confirmed By Final Nick Confirmed Date Final Nick Date Ultra Sound Latest Days Gestation 0 0 Menstrual History Last Menstrual Date Menses Monthly On Bcp Conception Prior Menses Frequency Hcg Plus Date Menarche Onset Age Delivery Information Delivery Date Delivery Type Labor Anesthesia Weeks Gestation Incision Type Labor Labor Length Hrs Delivered By Post Complications Tubal Sterilization Discharge Date Comments 4 40 Discharge Information Feeding Method Contraceptive Method Maternal HG B and HCT Levels Ob Episode Information Episode Created Date Number of Fetuses Patient Bloodtype Patient rh Status Prepregnancy Weight lbs Domestic Partner Domestic Partner Phone Father Name Quartz Miner Blasting Status 02/14/20 22 1 CLOSED Fetus Data First Name Last Name Admitted to NICU Weight (g) Sex Living Outcome Pediatric Complications Fetus ID Race Codes Race Delivery Type , Spontane ous [id number] Nick Calculation Initial Nick Date Initial Exam Date Initial Exam Provider Initial Ultrasound Date Last Menstrual Period Date Ultra Sound Weeks Gestation 0 Eighteen To Twenty Week Nick Update Ultra Sound Date Fundal Height At Umbil Quickening Date Ultra Sound Latest Weeks Gestation Final Nick Confirmed By Final Nick Confirmed Date Final Nick Date Ultra Sound Latest Days Gestation 0 0 Menstrual History Last Menstrual Date Menses Monthly On Bcp Conception Prior Menses Frequency Hcg Plus Date Menarche Onset Age Delivery Information Delivery Date Delivery Type Labor Anesthesia Weeks Gestation Incision Type Labor Labor Length Hrs Delivered By Post Complications Tubal Sterilization Discharge Date Comments 6 Discharge Information Feeding Method Contraceptive Method Maternal HG B and HCT Levels Ob Episode Information Episode Created Date Number of Fetuses Patient Bloodtype Patient rh Status Prepregnancy Weight lbs Domestic Partner Domestic Partner Phone Father Name Quartz Miner Blasting Status 02/14/20 22 1 CLOSED Fetus Data First Name Last Name Admitted to NICU Weight (g) Sex Living Outcome Pediatric Complications Fetus ID Race Codes Race Delivery Type , Induced [id number] Nick Calculation Initial Nick Date Initial Exam Date Initial Exam Provider Initial Ultrasound Date Last Menstrual Period Date Ultra Sound Weeks Gestation 0 Eighteen To Twenty Week Nick Update Ultra Sound Date Fundal Height At Umbil Quickening Date Ultra Sound Latest Weeks Gestation Final Nick Confirmed By Final Nick Confirmed Date Final Nick Date Ultra Sound Latest Days Gestation 0 0 Menstrual History Last Menstrual Date Menses Monthly On Bcp Conception Prior Menses Frequency Hcg Plus Date Menarche Onset Age Delivery Information Delivery Date Delivery Type Labor Anesthesia Weeks Gestation Incision Type Labor Labor Length Hrs Delivered By Post Complications Tubal Sterilization Discharge Date Comments 6 Discharge Information Feeding Method Contraceptive Method Maternal HG B and HCT Levels
--- OUTSIDE RECORDS SUMMARY | 2024-10-12 15:37 | XMS_ITS | Clinical Summary ---
Author Organization [facility] Address [address] [place] [address] Care Team Providers Care Casting Repairer Name Role Phone Claudine Jimenez MATCHER-RACECAR DRIVER Primary Care P barb Unavailable Source Comments [facility],non-owned Affiliates and Associated Physician Practices is amultiple site organization consisting of ambulatory clinics and hospital sitesin [place], [place], [place] and [place]. This disclosure is being madepursuant to the Care Everywhere program and may not contain all information available regarding this patient. Last updated 18.[facility] [employer] Social History Tobacco Use Types Packs/Day Years Used Date Smoking Tobacco: Never Assessed Sex and Gender Information Value Date Recorded Sex Assigned at Not on file Gender Identity Not on file Sexual Orientation Not on file Plan of Treatment Health Maintenance Due Date Last Done Comments COLOGUARD (AGES 45-75) - COL ON CA SCREENING 1972 COLON MONITORING 1972 COLONOSCOPY - COLON CA SCREENING 1972 CT COLONOGRAPHY - COLON CA SCREENING 1972 Colorectal Cancer Screening 1972 FIT - COLON CA SCREENING 1972 FLEX SIG - COLON CA SCREENING 1972 LIPID TESTING 1972 MAMMOGRAM 1972 HIV SCREENING 1987 HEPATITIS C SCREENING 07/24/1990 DTAP/TDAP/TD VACCINES (1 - Tdap) 1991 HEPATITIS B VACCINE (1 of 3 - 19+ 3-dose series) 1991 PAP SMEAR 03/07/2000 03/07/1997 PNEUMOCOCCAL VACCINE 50+ (1 of 1 - PCV) 2022 ZOSTER VACCINE (1 of 2) 2022 COVID-19 VACCINE ( - 2023-2 5 season) 2024 INFLUENZA VACCINE (#1) 2024 DEPRESSION SCREENING 08/27/2024 HIB VACCINE Aged Out No longer eligi ble based on patient's age to complete this topic HPV VACCINE Aged Out No longer eligi ble based on patient's age to complete this topic MENINGOCOCCAL (Group B) VACCINE Aged Out No longer eligible based on patient's age to complete this topic MENINGOCOCCAL VACCINE Aged Out No praveen amada eligible based on patient's age to complete this topic PNEUMOCOCCAL VACCINE Aged Out No long er eligible based on patient's age to complete this topic Procedures Procedure Name Priority Date/Time Associated Diagnosis Comments CYTOLOGY SMEAR PAP PEGGY 03/07/1997 10 :58 AM CDT from Last 3 Months or Most Recently Relevant to Health Maintenance Results * CYTOLOGY SMEAR PAP (03/07/1997 10:58 AM CDT) Result CASE NUMBER [id number] Comment: ORDERING PHYSICIAN FELISA [facility]KE [facility] SPECIMEN TYPE PAP Smear Date 03/06/1997 Procedure Cervical/Endocervical, 1 smear received Specimen Adequacy Satisfactory for Evaluation Categorization Within Normal Limits Comment Inflammation Present. Snomed. 03/13/1997 1109 <2> Digital Sales Director Easton Doherty(ASCP) PAP Footnote The PAP smear [...] Recently Relevant to Health Maintenance Care Teams Casting Repairer Relationship Specialty Start Date End Date Claudine Jimenez, MATCHER-RACECAR DRIVER PCP - General 02/21/18
--- OUTSIDE RECORDS SUMMARY | 2024-10-12 15:37 | XMS_ITS | Patient Health Summary ---
Author Organization [facility] Address [address] [place] [address] Care Team Providers Care Promotion Manager Name Role Phone Claudine Jimenez RUNNING RIGGER-TEACHER EDUCATION INSTRUCTOR Primary Care P barb Unavailable [facility],non-owned Affiliates and Associated Physician Practices is amultiple site organization consisting of ambulatory clinics and hospital sitesin [place], [place], [place] and [place]. This disclosure is being madepursuant to the Care Everywhere program and may not contain all information available regarding this patient. Last updated 18.[facility] [employer] Social History Tobacco Use Types Packs/Day Years Used Date Smoking Tobacco: Never Assessed Sex and Gender Information Value Date Recorded Sex Assigned at Not on file Gender Identity Not on file Sexual Orientation Not on file Procedures * CYTOLOGY SMEAR PAP(Performed 03/07/1997) Results * CYTOLOGY SMEAR PAP (03/07/1997 10:58 AM CDT) Result CASE NUMBER [id number] Comment: ORDERING PHYSICIAN FELISA B[facility]KE [facility] SPECIMEN TYPE PAP Smear Date 03/06/1997 Procedure Cervical/Endocervical, 1 smear received Specimen Adequacy Satisfactory for Evaluation Categorization Within Normal Limits Comment Inflammation Present. Snomed. 03/13/1997 1109 <2> Ammonia Solution Preparer Easton Doherty(ASCP) PAP Footnote The PAP smear [...] Historical Provider LAB - PATHOLOGY/C YTOLOGY ORDERABLES Care Teams Promotion Manager Relationship Specialty Start Date End Date Claudine Jimenez, RUNNING RIGGER-TEACHER EDUCATION INSTRUCTOR PCP - General 02/21/18
--- OUTSIDE RECORDS SUMMARY | 2024-10-12 15:37 | XMS_ITS | Clinical Summary ---
Author Organization [facility] Address [address] [place] [address] Phone Care Team Providers Care Mixer Driver Name Role Phone Ely Marcus MD Primary Care Provider [phone] Allergies Active Allergy Reactions Criticality Noted Date Comments Aspirin Unknown 10/07/2022 Metformin Diarrhea,Headache Low 10/07/2022 Medications BD Radha 2nd Gen Pen Needle 32 gauge x 5/32 Needle USE DAILY WITH INSULIN 3 Active OneTouch Delica Plus Lancet 33 gauge USE TO TEST BLOOD SUGAR LEVELS TWICE DAILY 3 Active OneTouch Ultra2 Meter USE DIRECTED 3 Active OneTouch Ultra Test Strip USE TO TEST TWICE DAILY 3 Active BD Single Use Swabs Regular Pads, Medicated USE TWICE DAILY 3 Active esomeprazole (NexIUM) 40 mg Capsule, Delayed Release(E.C.) Take 1 Capsule (40 mg) by mouth daily before breakfast. 30 Capsule 3 Active levothyroxine 175 mcg tabletIndications: Hypothyroidism, unspecified type Take 1 Tablet (175 mcg) by mouth daily in the morning. 90 Tablet 1 11/07/2023 2:48 PM CDT 4 Active atorvastatin (LIPITOR) 40 mg tabletIndications: Type 2 diabetes mellitus without complication, without long-term current use of insulin (CMS/HCC),Other hyperlipidemia Take 1 Tablet (40 mg) by mouth daily at bedtime. 90 Tablet 1 11/20/2023 10:08 AM CDT 4 Active blood sugar diagnostic (OneTouch Ultra Test) Strip Use to test twice daily 100 Each 5 4 Active triamcinolone acetonide (KENALOG) 0.1 % CreamIndications:P eeling skin Apply to affected area 2 times daily. 45 Gram 2 4 Active levothyroxine 150 mcg tablet take 1 tablet by mouth every day 100 Tablet 3 4 Active benzonatate (TESSALON) 100 mg capsuleIndications :Subacute cough Take 100 mg by mouth 3 times daily. Active albuterol sulfate HFA 90 mcg/actuation aerosol inhalerIndications :Subacute cough Take 2 Puffs by inhalation every 6 hours as needed for Shortness of Breath. 8.5 Gram 1 4 Active dextromethorphan-g uaiFENesin (MUCINEX DM) 30-600 mg Tablet Sustained Release 12HR Take 1 Tablet by mouth every 12 hours. 20 Tablet 05/28/2024 10:31 PM CDT 4 Active fluticasone propionate (FLONASE) 50 mcg/spray [place], Suspension nasal inhalerIndications :Subacute cough Administer 2 Sprays in each nostril daily. 4 Active fluticasone propion-salmeteroL (ADVAIR DISKUS,WIXELA INHUB) 100-50 mcg/dose disk inhalerIndications :Subacute cough Take 1 Puff by inhalation 2 times daily. 60 Each 4 Active tiZANidine (Zanaflex) 4 mg Capsule Take 1 Capsule (4 mg) by mouth every 8 hours as needed for Spasm. 20 Capsule 5 Active Active Problems Problem Noted Date Diagnosed Date Chronic cough 07/22/2024 Soft tissue mass 08/21/2023 Type 2 diabetes mellitus with hyperglycemia 04/0 11/2022 Elevated AST (SGOT) 11/12/2022 Hyperlipidemia 10/09/2022 Diabetes mellitus with hyperglycemia 10/07/2022 Hypothyroidism 10/07/2022 Abnormal EKG 10/07/2022 Resolved Problems Problem Noted Date Diagnosed Date Resolved Date Precordial chest pain 10/07/20222022 Nausea 10/07/2022 11/12/2022 Hyponatremia 10/07/2022 11/12/2022 Hypokalemia 10/07/2022 11/12/2022 Elevated LFTs 10/07/2022 11/12/2022 Encounters Date Type Department Care Team Description 10/07/2024 External Device Data STL ABSTRACTION Provider, Abstract 09/09/2024 External Device Data ST[facility] ABSTRACTION Provider, Abstract 09/07/2024 11:09 PM CLINICAL DOCUMENTATION DEVELOPER - 09/08/2024 12:34 AM CLINICAL DOCUMENTATION DEVELOPER [facility] Emergency Department [address] [place] [address] Alissa Del Toro MD Muscle spasm (Primary Dx); Contusion of scalp, initial encounter Discharge Disposition: Home or Self Care 09/07/2024 Travel 08/26/2024 External Device Data STL ABSTRACTION Provider, Abstract 07/30/2024 3:15 PM CLINICAL DOCUMENTATION DEVELOPER - 07/30/2024 11:59 PM CLINICAL DOCUMENTATION DEVELOPER Hospital Encounter [facility] Pulmonary Function [facility] [place] [facility] [address] [place] [address] Christa Singh MD Discharge Disposition: Home or Self Care 07/22/2024 2:30 PM CLINICAL DOCUMENTATION DEVELOPER Office Visit [facility] Pulmonology - [facility] [address] [place] [address] Christa Singh MD Chronic cough (Primary Dx) from Last 3 Months Family History Medical History Relation Name Comments Heart Disease Father Mr Langford Diabetes Mother Mrs Murrell Hypertension Mother Mrs Murrell Relation Name Status Comments Father Mr Langford Mother Mrs Murrell Alive Social History Tobacco Use Types Packs/Day Years Used Date Smoking Tobacco: Never Passive Smoke Exposure: Never Smokeless Tobacco: Never Tobacco Cessation:Counseling Given: No Alcohol Use Standard Drinks/Week Comments Not Currently 1 (1 standard drink = 0.6 oz pure alcohol) Rarely only on special occasions/ outings Financial Resource Strain Answer Date R ecorded How hard is it for you to pa y for the very basics like food, housing, medical care, and heating? Not very hard 10/30/2022 Food Insecurity Answer Date Recorded In the past 12 months, have you worried that your food would run out before you had money to buy more? Never true 10/30/2022 In the past 12 months, did y ou run out of food and didn't have money to buy more? Never true 10/30/2022 Transportation Needs Answer Date Record ed In the past 12 months, has l ack of transportation kept you from medical appointments or from getting medications? No 10/30/2022 Lack of Transportation (Non-Medical) Not on file 10/30/2022 Feeling Safe Answer Date Recorded Are you in a relationship wi th someone who hurts you emotionally and/or physically? No 09/07/2024 Comments No Sex and Gender Information Value Date Recorded Sex Assigned at Not on file Legal Sex Female 1:57 PM CLINICAL DOCUMENTATION DEVELOPER Gender Identity Not on file Sexual Orientation Not on file Last Filed Vital Signs Vital Sign Reading Time Taken Comments Blood Pressure 130/69 09/08/2024 12:30 AM CLINICAL DOCUMENTATION DEVELOPER Pulse 67 09/08/2024 12:30 AM CLINICAL DOCUMENTATION DEVELOPER Temperature 36.8 C (98.2 F) 09/07/2024 10:45 PM CLINICAL DOCUMENTATION DEVELOPER Respiratory Rate 18 09/08/2024 12:30 AM CLINICAL DOCUMENTATION DEVELOPER Oxygen Saturation 99% 09/08/2024 12:30 AM CLINICAL DOCUMENTATION DEVELOPER Inhaled Oxygen Concentration - - Weight 95.3 kg (210 lb) 09/07/2024 10:45 PM CLINICAL DOCUMENTATION DEVELOPER Height 165.1 cm (5' 5 ) 09/07/2024 10:45 PM CLINICAL DOCUMENTATION DEVELOPER Body Mass Index 34.95 09/07/2024 10:45 PM CLINICAL DOCUMENTATION DEVELOPER Plan of Treatment Upcoming Encounters Date Type Department Care Team (Late st Contact Info) Description 04/08/2025 4:00 PM CDT Office Visit [facility] Internal Medicine - [facility] [address] [place] [address] [place] [address] [address] [place] [address] Health Maintenance Due Date Last Done Comments DTAP/TDAP/TD VACCINES (1 - Tdap) 1991 HEPATITIS B VACCINES (1 of 3 - 19+ 3-dose series) 1991 FIT-DNA Q 3 years 2017 FIT/FOBT Q 1 year 2017 Flex Sig/CT Colonography Q 5 years 2017 ZOSTER VACCINE (1 of 2) 2022 INFLUENZA VACCINE (#1) 2024 10/08/2023, 2022 DIABETES ANNUAL FOOT EXAM 10/08/2024 10/08/2023 DIABETES ANNUAL RETINAL EXAM 11/09/2024 11/10/2023, 11/07/2022 LDL CHOLESTEROL ANNUAL 11/15/2024 11/16/2023, 2022 BREAST CANCER SCREENING 11/19/2024 11/20/19 24, 11/20/2023, 11/20/2023 DIABETES MICROALBUMIN ANNUAL SCREEN 12/07/2024 12/08/2023, 11/16/2023, 10/31/2022 DIABETES HBA1C Q 6 MONTHS 12/09/20242023, 11/16/2023, 10/07/2022 CERVICAL CANCER SCREENING 02/13/2025 02/13/2022 DIABETES: A1C (Auto Order) 06/10/202506/10, 11/16/2023, 10/07/2022 COLORECTAL SCREENING 04/09/2034 04/09/2024 Colorectal Cancer Screening 04/09/2034 Procedures Procedure Name Priority Date/Time Associated Diagnosis Comments CT HEAD CERVICAL SPINE WO CONTRAST Stat 09/07/2024 11:57 PM CLINICAL DOCUMENTATION DEVELOPER XR LUMBAR SPINE 2 OR 3 VW Stat 09/07/2024 11:54 PM CLINICAL DOCUMENTATION DEVELOPER XR THORACIC SPINE 3 VW Stat 09/07/2024 11:54 PM CLINICAL DOCUMENTATION DEVELOPER XR HIP 2 OR 3 VIEWS LT Stat 09/07/2024 11:50 PM CLINICAL DOCUMENTATION DEVELOPER PULMONARY FUNCTION TEST Routine 07/30/2024 3:48 PM CLINICAL DOCUMENTATION DEVELOPER Chronic cough HEMOGLOBIN A1C Routine 06/10/2024 8:12 AM CDT Encounter for routine adult health examination with abnormal findings Type 2 diabetes mellitus in remission ([facility]) Prediabetes COLONOSCOPY REPORT Routine 04/09/2024 2: 16 PM CDT MICROALBUMIN/CREATIN INE RATIO, RANDOM UR Routine 12/08/2023 8:42 AM CDT Type 2 diabetes mellitus with hyperglycemia, without long-term current use of insulin (CMS/HCC) MAMMO 3D ANN SCREEN BILAT W OR WO CAD Routine 11/20/2023 7:44 AM CDT LIPID PANEL Routine 11/16/2023 8:39 AM CDT Type 2 diabetes mellitus with hyperglycemia, without long-term current use of insulin (CMS/HCC) Other hyperlipidemia Obesity (BMI 30.0-34.9) from Last 3 Months or Most Recently Relevant to Health Maintenance Results * CT HEAD CERVICAL SPINE WO CONTRAST (09/07/2024 11:57 PM CLINICAL DOCUMENTATION DEVELOPER) Anatomical Region Laterality Modality Head Computed Tomogra phy 09/07/2024 11:4 4 PM CLINICAL DOCUMENTATION DEVELOPER Impressions 09/08/2024 12:15 AM CLINICAL DOCUMENTATION DEVELOPER IMPRESSION: CT Head: No evidence of acute intracranial hemorrhage, acute transcortical infarction or intracranial mass. CT Cervical Spine: No acute cervical spine fracture or traumatic malalignment. DICTATION LOCATION: Location 4 Narrative 09/08/2024 12:15 AM CLINICAL DOCUMENTATION DEVELOPER EXAM: CT HEAD CERVICAL SPINE WO CONTRAST, 09/07/2024 11:57 PM HISTORY: 54 years Female fall. Head and neck injury. TECHNIQUE: CT Head: Axial images of the head were obtained without the use of intravenous contrast. Sagittal and coronal reformations were generated. CT Cervical Spine: Axial images were obtained of the cervical and upper thoracic spine without intravenous contrast. Sagittal and coronal reformations were generated. In accordance with CT policies/protocols and the ALARA principal, radiation dose reduction techniques (such as automated exposure control, adjustment of mA/kV according to patient size and/or iterative reconstruction technique) were utilized for this examination. COMPARISON: None available at the time of dictation. FINDINGS: CT Head: Brain and CSF spaces: There is no evidence of acute intracranial hemorrhage, acute transcortical infarction or intracranial mass. The mosher-white differentiation is preserved. There is no midline shift. The ventricles and sulci are normal for the patient's age. There are no extra-axial fluid collections. Orbits: The orbits are unremarkable. Paranasal sinuses and mastoids: The imaged paranasal sinuses are clear. The imaged mastoid air cells are clear. Calvarium and skull base: The skull base and calvarium are normal. The craniocervical junction is normal. Scalp and soft tissues: The scalp and imaged soft tissues are unremarkable. CT Cervical Spine: Spinal column: Spinal alignment is normal. No acute cervical spine fractures are seen. Vertebral bodies are normal in height. There is no suspicious lytic or sclerotic osseous lesion. Paraspinal: The paraspinal soft tissues are unremarkable. Discs and facets: The intervertebral disc heights are relatively maintained. There is no significant disc herniation, central canal stenosis or neural foraminal narrowing. Other: The thyroid gland is unremarkable. Imaged portions of the upper thorax are normal. Procedure Note Marv Galaviz MD - 09/08/2024 EXAM: CT HEAD CERVICAL SPINE WO CONTRAST, 09/07/2024 11:57 PM HISTORY: 54 years Female fall. Head and neck injury. TECHNIQUE: CT Head: Axial images of the head were obtained without the use of intravenous contrast. Sagittal and coronal reformations were generated. CT Cervical Spine: Axial images were obtained of the cervical and upper thoracic spine without intravenous contrast. Sagittal and coronal reformations were generated. In accordance with CT policies/protocols and the ALARA principal, radiation dose reduction techniques (such as automated exposure control, adjustment of mA/kV according to patient size and/or iterative reconstruction technique) were utilized for this examination. COMPARISON: None available at the time of dictation. FINDINGS: CT Head: Brain and CSF spaces: There is no evidence of acute intracranial hemorrhage, acute transcortical infarction or intracranial mass. The mosher-white differentiation is preserved. There is no midline shift. The ventricles and sulci are normal for the patient's age. There are no extra-axial fluid collections. Orbits: The orbits are unremarkable. Paranasal sinuses and mastoids: The imaged paranasal sinuses are clear. The imaged mastoid air cells are clear. Calvarium and skull base: The skull base and calvarium are normal. The craniocervical junction is normal. Scalp and soft tissues: The scalp and imaged soft tissues are unremarkable. CT Cervical Spine: Spinal column: Spinal alignment is normal. No acute cervical spine fractures are seen. Vertebral bodies are normal in height. There is no suspicious lytic or sclerotic osseous lesion. Paraspinal: The paraspinal soft tissues are unremarkable. Discs and facets: The intervertebral disc heights are relatively maintained. There is no significant disc herniation, central canal stenosis or neural foraminal narrowing. Other: The thyroid gland is unremarkable. Imaged portions of the upper thorax are normal. IMPRESSION: CT Head: No evidence of acute intracranial hemorrhage, acute transcortical infarction or intracranial mass. CT Cervical Spine: No acute cervical spine fracture or traumatic malalignment. DICTATION LOCATION: Location [address] ORDERABLES Final Result * XR LUMBAR SPINE 2 OR 3 VW (09/07/2024 11:54 PM CLINICAL DOCUMENTATION DEVELOPER) Anatomical Region Laterality Modality Spine Computed Radiogr aphy 09/07/2024 11:5 4 PM CLINICAL DOCUMENTATION DEVELOPER Impressions 09/08/2024 7:36 AM CLINICAL DOCUMENTATION DEVELOPER IMPRESSION: 1. Suspected mild to moderate lumbar spondylosis. DICTATION LOCATION: Location [address] [place] [address] Narrative 09/08/2024 7:36 AM CLINICAL DOCUMENTATION DEVELOPER EXAM: XR LUMBAR SPINE 2 OR 3 VW DATE: 09/07/2024 11:54 PM CLINICAL INDICATION: Low back pain. COMPARISON: January 28, 2023 FINDINGS: There is preservation of the normal lumbar lordosis. Alignment of the lumbar spine is within normal limits. There is no lateral subluxation on the frontal projection. There are no wedge-shaped compression deformities. Multilevel disc space narrowing and marginal osteophyte formation. Multilevel facet arthropathy. The bilateral sacroiliac joints are maintained. INCIDENTAL FINDINGS: None. Procedure Note Sriram Rodriguez MD - 09/08/2024 EXAM: XR LUMBAR SPINE 2 OR 3 VW DATE: 09/07/2024 11:54 PM CLINICAL INDICATION: Low back pain. COMPARISON: January 28, 2023 FINDINGS: There is preservation of the normal lumbar lordosis. Alignment of the lumbar spine is within normal limits. There is no lateral subluxation on the frontal projection. There are no wedge-shaped compression deformities. Multilevel disc space narrowing and marginal osteophyte formation. Multilevel facet arthropathy. The bilateral sacroiliac joints are maintained. INCIDENTAL FINDINGS: None. IMPRESSION: 1. Suspected mild to moderate lumbar spondylosis. DICTATION LOCATION: [address] [place] Alissa Del Toro MD DIAGNOSTIC IMAGING ORDERABLES Fi nal Result * XR THORACIC SPINE 3 VW (09/07/2024 11:54 PM CLINICAL DOCUMENTATION DEVELOPER) Anatomical Region Laterality Modality Spine Computed Radiogr aphy 09/07/2024 11:5 4 PM CLINICAL DOCUMENTATION DEVELOPER Impressions 09/08/2024 7:35 AM CLINICAL DOCUMENTATION DEVELOPER IMPRESSION: 1. Suspected mild to moderate thoracic spondylosis. DICTATION LOCATION: [address] Narrative 09/08/2024 7:35 AM CLINICAL DOCUMENTATION DEVELOPER XR THORACIC SPINE 3 VW DATE: 09/07/2024 11:54 PM CLINICAL INDICATION: Upper back pain. Fall. COMPARISON: None FINDINGS: Preservation of the normal thoracic kyphosis. Alignment is within normal limits. There is no lateral subluxation on the frontal projection. No wedge-shaped compression deformity. Multilevel disc space narrowing and marginal osteophyte formation. The upper thoracic spine is obscured by the overlying shoulders. The visualized lungs are unremarkable. INCIDENTAL FINDINGS: None. Procedure Note Sriram Rodriguez MD - 09/08/2024 XR THORACIC SPINE 3 VW DATE: 09/07/2024 11:54 PM CLINICAL INDICATION: Upper back pain. Fall. COMPARISON: None FINDINGS: Preservation of the normal thoracic kyphosis. Alignment is within normal limits. There is no lateral subluxation on the frontal projection. No wedge-shaped compression deformity. Multilevel disc space narrowing and marginal osteophyte formation. The upper thoracic spine is obscured by the overlying shoulders. The visualized lungs are unremarkable. INCIDENTAL FINDINGS: None. IMPRESSION: 1. Suspected mild to moderate thoracic spondylosis. DICTATION LOCATION: [address] [place] Alissa Del Toro MD DIAGNOSTIC IMAGING ORDERABLES Fi nal Result * XR HIP 2 OR 3 VIEWS LT (09/07/2024 11:50 PM CLINICAL DOCUMENTATION DEVELOPER) Anatomical Region Laterality Modality Lower Extremity Left Computed Radiogr aphy 09/07/2024 11:5 0 PM CLINICAL DOCUMENTATION DEVELOPER Impressions 09/08/2024 7:26 AM CLINICAL DOCUMENTATION DEVELOPER IMPRESSION: 1. Degenerative change in the hips. No acute fracture or dislocation. DICTATION LOCATION: [address] Narrative 09/08/2024 7:26 AM CLINICAL DOCUMENTATION DEVELOPER LEFT HIP, TWO VIEWS AND PELVIS AP ONLY DATE: 09/07/2024 11:50 PM CLINICAL INDICATION: Left hip pain. Fall. COMPARISON: January 28, 2023 FINDINGS: Pelvis: The sacroiliac joints are well-maintained. Osteophyte formation at the bilateral hips. No fracture or dislocation is seen. Left hip: Alignment of the left hip is maintained. No fracture is identified. Osteophyte formation at the left hip. INCIDENTAL FINDINGS: None. Procedure Note Sriram Rodriguez MD - 09/08/2024 LEFT HIP, TWO VIEWS AND PELVIS AP ONLY DATE: 09/07/2024 11:50 PM CLINICAL INDICATION: Left hip pain. Fall. COMPARISON: January 28, 2023 FINDINGS: Pelvis: The sacroiliac joints are well-maintained. Osteophyte formation at the bilateral hips. No fracture or dislocation is seen. Left hip: Alignment of the left hip is maintained. No fracture is identified. Osteophyte formation at the left hip. INCIDENTAL FINDINGS: None. IMPRESSION: 1. Degenerative change in the hips. No acute fracture or dislocation. DICTATION LOCATION: [address] Alissa Del Toro MD DIAGNOSTIC IMAGING ORDERABLES Fi nal Result * PULMONARY FUNCTION TEST (07/30/2024 3:48 PM CLINICAL DOCUMENTATION DEVELOPER) 07/30/2024 3:48 PM CLINICAL DOCUMENTATION DEVELOPER Narrative INTERFACE SYSTEM - 07/30/2024 5:20 PM [facility] [address] [facility], [place] [address] Test Date: 2024-07-30 Pat Name: RODOLFO VIERA Department: Room: Gender: Female Purchasing Contracting Clerk: : 1970 Requested By: CHRISTA SINGH Order Number: [id number] Reading MD: Mando Orellana Interpretive Statements Technologist's Comments: None. Adequate Test. Normal appearing inspiratory and expiratory flow limbs. IMPRESSION: Normal pulmonary function testing. No significant response seen to an inhaled bronchodilator. Electronically Signed On 07-30-2024 17:20:35 CLINICAL DOCUMENTATION DEVELOPER by Mando Orellana Procedure Note Provider, Historical - 07/30/2024 [facility] [address], [place] [address] Test Date: 2024-07-30 Pat Name: RODOLFO VIERA Department: Room: Gender: Female Purchasing Contracting Clerk: : 1970 Requested By: CHRISTA SINGH Order Number: [id number] Reading MD: Mando Orellana Interpretive Statements Technologist's Comments: None. Adequate Test. Normal appearing inspiratory and expiratory flow limbs. IMPRESSION: Normal pulmonary function testing. No significant response seen to an inhaled bronchodilator. Electronically Signed On 07-30-2024 17:20:35 CLINICAL DOCUMENTATION DEVELOPER by Mando Orellana Christa Singh MD PFT ORDERABLES Final Result INTERFACE SYSTEM Refer to clinic/hospital department * (ABNORMAL) HEMOGLOBIN A1C (06/10/2024 8:12 AM CDT) HEMOGLOBIN A1C 6.6(H) <5.7 % of total Hgb [facility] Comment: For someone without known diabetes, a hemoglobin A1c value of 6.5% or greater indicates that they may have diabetes and this should be confirmed with a follow-up test. For someone with known diabetes, a value <7% indicates that their diabetes is well controlled and a value greater than or equal to 7% indicates suboptimal control. A1c targets should be individualized based on duration of diabetes, age, comorbid conditions, and other considerations. Currently, no consensus exists regarding use of hemoglobin A1c for diagnosis of diabetes for children. ESTIMATED AVERAGE GLUCOSE (MG/DL) 143 mg/dL [employer] ESTIMATED AVERAGE GLUCOSE (MMOL/L) 7.9 mmol/L [facility] Comment: Test Performed [facility]: [facility] [address] [place] [address] Floresita Koch Blood 06/10/2024 8:12 AM CDT 06/10/2024 8:12 AM CDT us Ely Marcus MD CHEMISTRY ORDERABLES Final Resul t [facility] [phone] [facility] [address] [place] [address] * COLONOSCOPY REPORT (04/09/2024 2:16 PM CDT) us Abstract Provider GI PROCEDURE ORDERABLES Final Result [facility] CLIA# [id number] [address] * (ABNORMAL) MICROALBUMIN/CREATININE RATIO, RANDOM UR (12/08/2023 8:42 AM CDT) Creatinine, Urine 98 20 - 275 mg/dL [facility] MICROALBUMIN, URINE 3.5 See Note: mg/dL [facility] Comment: Reference Range: Reference Range Not established MICROALBUMIN/CREAT RATIO, UR 36(H) <30 mg/g creat [facility] Comment: The ADA defines abnormalities in albumin excretion as follows: Albuminuria Category Result (mg/g creatinine) Normal to Mildly increased <30 Moderately increased 30-299 Severely increased > OR = 300 The ADA recommends that at least two of three specimens collected within a 3-6 month period be abnormal before considering a patient to be within a diagnostic category. FASTING:YES FASTING: YES Test Performed at: [facility] [id number] [address] Floresita Koch MD Urine URINE SPECIMEN OBTAINED BY CLEAN CATCH PROCEDURE / Unknown 12/08/2023 8:42 AM CDT 12/08/2023 8:42 AM CDT us Ely Marcus MD URINE ORDERABLES Final Result [facility] [phone] [place] [id number] [id number] * MAMMO 3D ANN SCREEN BILAT W OR WO CAD (11/20/2023 7:44 AM CDT) Anatomical Region Laterality Modality Breast Bilateral Other Abstract Provider MAMMO ORDERABLES Final Result * (ABNORMAL) LIPID PANEL (11/16/2023 8:39 AM CDT) CHOLESTEROL 211(H) <200 mg/dL [employer] [facility] HDL 62 > OR = 50 mg/dL [employer] TRIGLYCERIDE 84 <150 mg/dL [employer] LDL CALCULATED 131(H) mg/dL (calc) [employer] [facility] [facility] Comment: Reference range: <100 Desirable range <100 mg/dL for primary prevention; <70 mg/dL for patients with CHD or diabetic patients with > or = 2 CHD risk factors. LDL-C is now calculated using the Onur calculation, which is a validated novel method providing better accuracy than the Friedewald equation in the estimation of LDL-C. Alverto ROSSI et al. CARMENCITA. 2013;310(19): 0041-9343 (http://education.[employer]/faq/YYV715) CHOL/HDL RATIO 3.4 <5.0 (calc) [employer] TOTAL NON-HDL CHOL(LDL+VLDL) 149(H) <130 mg/dL (calc) [employer] Comment: For patients with diabetes plus 1 major ASCVD risk factor, treating to a non-HDL-C goal of <100 mg/dL (LDL-C of <70 mg/dL) is considered a therapeutic option. Test Performed at: [facility] [place] [address] [address] [place] [address] Floresita Siegel Blood 11/16/2023 8:39 AM CDT 11/16/2023 8:41 AM CDT Ely Marcus MD CHEMISTRY ORDERABLES Final Resul t [facility] [phone] [place] [address] [address] [place] [place] [address] from Last 3 Months or Most Recently Relevant to Health Maintenance Insurance RX WEINBERG PLANS (INTERNAL) [facility] Plans RX RELAYHEALTH Commercial RX CHANGE HEALTHCARE Commercial RX [facility] [employer] HMO OPEN ACCESS [employer] O OPEN ACCESS Advance Directives For more information, please contact: [phone] * Full Code (Latest Code Status on File) Date Activated Date Inactivated Comments 10/07/2022 7:39 PM 10/09/2022 7:38 PM Care Teams Mixer Driver Relationship Specialty [place] [address] [facility] [address] [place] [address] PCP - General Internal Medicine 10/08/23
[2024-10-12 16:05] VITALS: BP 127/71; PULSE 117; RESP 20; TEMP 36.4; O2SAT 99
--- NOTE | 2024-10-12 17:18 | PC.NURSE ---
Pt came to RN stating the wait is tool long, she is going to leave and go somewhere else. RN encouraged pt to stay, pt refused
== END 2024-10-12 17:18 | disposition left against medical advice (07) ==
DX: R11.2 Nausea with vomiting, unspecified (principal)
CPT/HCPCS: 99199

== ENCOUNTER 2024-10-19 09:41 | Outpatient (CLI) | payer OTHER, SELFPAY ==
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
--- OUTSIDE RECORDS SUMMARY | 2024-10-19 09:47 | XMS_ITS | Clinical Summary ---
Author Organization [facility] Address [address] [place] [phone] Care Team Providers Care Overhauler Bus Truck Name Role Phone Unavailable Primary Care Provider Unavailabl e Social History Tobacco Use Types Packs/Day Years Used Date Smoking Tobacco: Never Assessed Comments Unknown Sex and Gender Information Value Date Recorded Sex Assigned at Not on file Legal Sex Female 2:52 AM CARBONIZER TESTER Gender Identity Not on file Sexual Orientation Not on file Plan of Treatment Health Maintenance Due Date Last Done Comments Hepatitis C Virus (HCV) Screening 1970 Hepatitis B Immunization (1 of 3 - 19+ 3-dose series) 1991 Pap Smear 1993 Cervical Cancer Screening (CCS) 2002 HPV/Cotest 2002 Colonoscopy 2017 Colorectal Cancer Screening 2017 Cologuard 2022 Immunochemical Fecal Occult Blood 2022 Mammogram 2022 Pneumococcal Immunization (50+ years) (1 of 1 - PCV) 2022 Zoster Immunization (1 of 2) 2022 Influenza Immunization (#1) 2024 SARS-COV-2 Immunization ( - season) 2024 Respiratory Syncytial Virus (RSV) Immunization (Adult) (1 - 1-dose 75+ series) 2047 DTaP/Tdap/Td Immunization Discontinued 2012, 05/11/1989, 05/29/1979, Additional history exists TdaP Immunization Completed 12/02/2012 Meningococcal Immunization (ACWY) Aged Out No longer eligible based on patient's age to complete this topic Pneumococcal Immunization Combined Aged Out No longer eligible based on patient's age to complete this topic Rotavirus Immunization Aged Out No lo nger eligible based on patient's age to complete this topic
--- OUTSIDE RECORDS SUMMARY | 2024-10-19 09:48 | XMS_ITS | CONTINUITY OF CARE DOCUMENT ---
Author Name rickiealia rickiealia Address Unknown Organization [facility] Address [address] [place] [address] Phone [phone] Care Team Providers Care Technical Sales Support Specialist Name Role Phone Nas Mcdaniel MD Unavailable PHILIP VELA MD Unavailable PHILIP VELA MD Unavailable PROBLEMS Condition Status Date Provider Notes Hypothyroidism active Nas Mcdaniel MD Family History Coronary Hear t Disease male < 55: active Nas Mcdaniel MD Chest pain-type to be determined active Raul Mcdaniel MD Abnormal electrocardiogram active Nas jaimes MD Hypertension active Nas Mcdaniel MD Hyperlipidemia active Nas Mcdaniel MD ENCOUNTERS Date Type Provider Location Encounter Diag nosis - In-person encounter Office Visit Nas Mcdaniel MD [facility] HypertensionHyperlipidemia - In-person encounter Office Visit Nas Mcdaniel MD [place] [facility] HypothyroidismFamily History Coronary Heart Disease male < 55:Chest pain-type to be determinedAbnormal electrocardiogram VITAL SIGNS Date Observation Value Provider oxygen saturation, oximetry 100 % Nas Mcdaniel MD pulse rate 71 /min Nas Abraham respiratory rate E&M 14 /min Nas ziegler MD blood pressure, diastolic 87 mm[Hg] Ra dean Mcdaniel MD blood pressure, systolic 132 mm[Hg] Raul Mcdaniel MD Body Mass Index (Ratio) 36.94 kg/m2 Derek Mcdaniel MD blood pressure, diastolic 70 mm[Hg] Li nkLogic blood pressure, systolic 113 mm[Hg] Krysta kLogic blood pressure, cuff size regular Pa ris Dana blood pressure, diastolic 70 mm[Hg] Pa ris [place] blood pressure, systolic 113 mm[Hg] Par is [place] oxygen saturation, oximetry 98 % [place] respiratory rate E&M 20 /min [place] H joyce pulse rate 84 /min [place] weight E&M 222 [lb_av] [place] height E&M 65 [in_i] [facility] Allergy Name Onset Date Reaction Criticality Status ASPIRIN makes pt have upset stomach High Cri ticality active HISTORY OF MEDICATION USE Medication Status Instructions Dates Provider Indications Com ments levothyroxine 150 mcg tablet active 1 tablet once a day Nas Mcdaniel MD SOCIAL HISTORY Date Observation Value Provider passive cigarette sm scarlett exposure no Nas Mcdaniel MD social history reviewed E&M revi ewed - no changes required Nas Mcdaniel MD social history reviewed E&M revi ewed - no changes required Nas Mcdaniel MD social history E&M Marital Statu s: Single C michaelen: 4 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 Nas Mcdaniel MD appendectomy, history of Appendectomy, Hx of Nas Mcdanile MD smoking status Never smoker Rose Mary [place] FAMILY HISTORY Family Member Condition Father VA male <55 Father Family History of Co ronary Artery Disease: Father Family History Coron jody Heart Disease male < 55: Father Family History of Co ronary Artery Disease: INSURANCE PROVIDERS Payer name Policy type / Coverage type Nivia red libertarian ID [employer] OPEN ACCESS Other [id number] [employer]AN Date Name Performer [id number],B, Nas benites MD [id number],S, Nas benites MD [id number],S, Nas benites MD [id number],S, Nas benites MD [id number],S, Nas benites MD [id number],S, Nas benites MD [id number],S, Nas benites MD [id number],N, Nas benitse MD Cardiology Nas Mcdaniel MD Cardiology Nas Mcdaniel MD Cardiology Nas Mcdaniel MD Cardiology Nas Mcdaniel MD Cardiology Nas Mcdaniel MD Cardiology Nas Mcdaniel MD Cardiology Nas Mcdaniel MD Cardiology Nas Mcdaniel MD Date Name Stress Exercise Card iolite Complete Echo
--- OUTSIDE RECORDS SUMMARY | 2024-10-19 09:48 | XMS_ITS | Referral Summary ---
Author Organization [facility] Address [address] [place] [address] Care Team Providers Care Glass Driller Name Role Phone Claudine Jimenez BARREL DRAINER-SWAHILI TEACHER Primary Care P barb Unavailable Source Comments [facility],non-owned Affiliates and Associated Physician Practices is amultiple site organization consisting of ambulatory clinics and hospital sitesin [place], [place], [place] and [place]. This disclosure is being madepursuant to the Care Everywhere program and may not contain all information available regarding this patient. Last updated 18.[facility] [employer] Social History Tobacco Use Types Packs/Day Years [...] [id number] Comment: ORDERING PHYSICIAN FELISA BLAKE [facility] SPECIMEN TYPE PAP Smear Date 03/06/1997 Procedure Cervical/Endocervical, 1 smear received Specimen Adequacy Satisfactory for Evaluation Categorization Within Normal Limits Comment Inflammation Present. Snomed. 03/13/1997 1109 <2> Ag Service Manager Easton Doherty(ASCP) PAP Footnote The PAP smear [...] Recently Relevant to Health Maintenance Care Teams Glass Driller Relationship Specialty Start Date End Date Claudine Jimenez APRN-EAN PCP - General 02/21/18
--- OUTSIDE RECORDS SUMMARY | 2024-10-19 09:48 | XMS_ITS | Patient Health Summary ---
Author Organization [facility] Address [address] [place] [address] Care Team Providers Care Core Filer Name Role Phone Claudine Jimenez BIOCHEMICAL DEVELOPMENT ENGINEER-SCUDDING INSPECTOR Primary Care P barb Unavailable Note from [facility],non-owned Affiliates and Associated Physician Practices is amultiple site organization consisting of ambulatory clinics and hospital sitesin [place], [place], [place] and [place]. This disclosure is being madepursuant to the Care Everywhere program and may not contain all information available regarding this patient. Last updated 18.[facility] [employer] Social History Tobacco Use Types Packs/Day Years Used Date Smoking Tobacco: Never Assessed Sex and Gender Information Value Date Recorded Sex Assigned at Not on file Gender Identity Not on file Sexual Orientation Not on file Procedures * CYTOLOGY SMEAR PAP(Performed 03/07/1997) Results * CYTOLOGY SMEAR PAP (03/07/1997 10:58 AM CDT) Result CASE NUMBER [id number] Comment: ORDERING PHYSICIAN FELISA BLAKE [facility] SPECIMEN TYPE PAP Smear Date 03/06/1997 Procedure Cervical/Endocervical, 1 smear received Specimen Adequacy Satisfactory for Evaluation Categorization Within Normal Limits Comment Inflammation Present. Snomed. 03/13/1997 1109 <2> Retail Pharmacist Easton Doherty(ASCP) PAP Footnote The PAP smear [...] LAB - PATHOLOGY/C YTOLOGY ORDERABLES Care Teams Core Filer Relationship Specialty Start Date End Date Claudine Jimenez, BIOCHEMICAL DEVELOPMENT ENGINEER-SCUDDING INSPECTOR PCP - General 02/21/18
--- OUTSIDE RECORDS SUMMARY | 2024-10-19 09:48 | XMS_ITS | Clinical Summary ---
Author Organization [facility] Address [address] [place] [address] Phone Care Team Providers Care Lease Picker Name Role Phone Ely Marcus MD Primary Care Provider [phone] Allergies Active Allergy Reactions Criticality Noted Date [...] 4 Active fluticasone propionate (FLONASE) 50 mcg/spray [place], Suspension nasal inhalerIndications :Subacute cough Administer 2 [...] Encounters Date Type Department Care Team Description 10/16/2024 Telephone [facility] Internal Medicine - [place] [address] [place] [phone] Ely Marcus MD Clinical Consult Before Scheduling 10/07/2024 External Device Data STL ABSTRACTION Provider, Abstract 09/09/2024 External Device Data STL ABSTRACTION Provider, Abstract 09/07/2024 11:09 PM POLICE MANAGER - 09/08/2024 12:34 AM POLICE MANAGER Emergency [facility] Emergency Department [address] [place] [id number] Alissa Del Toro MD Muscle spasm (Primary Dx); Contusion of scalp, initial encounter Discharge Disposition: Home or Self Care 09/07/2024 Travel 08/26/2024 External Device Data STL ABSTRACTION Provider, Abstract 07/30/2024 3:15 PM POLICE MANAGER - 07/30/2024 11:59 PM [facility] Hospital Encounter [facility] Pulmonary Function [facility] [address] [place] [address] Christa Singh MD Discharge Disposition: Home or Self Care 07/22/2024 2:30 PM POLICE MANAGER Office Visit [facility] Pulmonology - [facility] [address] [place] [place] [phone] Christa Singh MD Chronic cough (Primary Dx) [...] on file Legal Sex Female 1:57 PM POLICE MANAGER Gender Identity Not on file Sexual Orientation Not on file Last Filed Vital Signs Vital Sign Reading Time Taken Comments Blood Pressure 130/69 09/08/2024 12:30 AM POLICE MANAGER Pulse 67 09/08/2024 12:30 AM POLICE MANAGER Temperature 36.8 C (98.2 F) 09/07/2024 10:45 PM POLICE MANAGER Respiratory Rate 18 09/08/2024 12:30 AM POLICE MANAGER Oxygen Saturation 99% 09/08/2024 12:30 AM POLICE MANAGER Inhaled Oxygen Concentration - - Weight 95.3 kg (210 lb) 09/07/2024 10:45 PM POLICE MANAGER Height 165.1 cm (5' 5 ) 09/07/2024 10:45 PM POLICE MANAGER Body Mass Index 34.95 09/07/2024 10:45 PM POLICE MANAGER Plan of Treatment Upcoming Encounters Date Type Department Care Team (Late st Contact Info) Description 04/08/2025 4:00 PM CDT Office Visit [facility] Internal Medicine - [place] [address] [place] [address] [place] [address] [facility] [address] [place] [address] Health Maintenance Due Date Last Done Comments DTAP/TDAP/TD VACCINES (1 - Tdap) 1991 HEPATITIS B VACCINES (1 of 3 - 19+ 3-dose series) 1991 FIT-DNA Q 3 years 2017 FIT/FOBT Q 1 year 2017 Flex Sig/CT Colonography Q 5 years 2017 ZOSTER VACCINE (1 of 2) 2022 INFLUENZA VACCINE (#1) 2024 10/08/2023, 2022 Preventative Visit- Commercial 08/27/2024 0 04/08/2024, 10/08/2023, 12/25/2022, Additional history exists DIABETES ANNUAL FOOT EXAM 10/08/2024 10/08/2023 DIABETES [...] SPINE WO CONTRAST Stat 09/07/2024 11:57 PM POLICE MANAGER XR LUMBAR SPINE 2 OR 3 VW Stat 09/07/2024 11:54 PM POLICE MANAGER XR THORACIC SPINE 3 VW Stat 09/07/2024 11:54 PM POLICE MANAGER XR HIP 2 OR 3 VIEWS LT Stat 09/07/2024 11:50 PM POLICE MANAGER PULMONARY FUNCTION TEST Routine 07/30/2024 3:48 PM POLICE MANAGER Chronic cough HEMOGLOBIN A1C Routine 06/10/2024 8:12 AM CDT Encounter for routine adult health examination with abnormal findings Type 2 diabetes mellitus in remission ([facility]) Prediabetes COLONOSCOPY REPORT Routine 04/09/2024 2: 16 PM CDT MICROALBUMIN/CREATIN INE RATIO, RANDOM UR Routine 12/08/2023 8:42 AM CDT Type 2 diabetes mellitus with hyperglycemia, without long-term current use of insulin ([facility]) MAMMO 3D ANN SCREEN BILAT W OR WO CAD Routine 11/20/2023 7:44 AM CDT LIPID PANEL Routine 11/16/2023 8:39 AM CDT Type 2 diabetes mellitus with hyperglycemia, without long-term current use of insulin ([facility]) Other hyperlipidemia Obesity (BMI 30.0-34.9) from Last 3 Months or Most Recently Relevant to Health Maintenance Results * CT HEAD CERVICAL SPINE WO CONTRAST (09/07/2024 11:57 PM POLICE MANAGER) Anatomical Region Laterality Modality Head Computed Tomogra phy 09/07/2024 11:4 4 PM POLICE MANAGER Impressions 09/08/2024 12:15 AM POLICE MANAGER IMPRESSION: CT Head: No evidence of acute intracranial hemorrhage, acute transcortical infarction or intracranial mass. CT Cervical Spine: No acute cervical spine fracture or traumatic malalignment. DICTATION LOCATION: Location [facility] 09/08/2024 12:15 AM POLICE MANAGER EXAM: CT HEAD CERVICAL SPINE WO CONTRAST, [...] 2 OR 3 VW (09/07/2024 11:54 PM POLICE MANAGER) Anatomical Region Laterality Modality Spine Computed Radiogr aphy 09/07/2024 11:5 4 PM POLICE MANAGER Impressions 09/08/2024 7:36 AM POLICE MANAGER IMPRESSION: 1. Suspected mild to moderate lumbar spondylosis. DICTATION LOCATION: [address] 09/08/2024 7:36 AM POLICE MANAGER EXAM: XR LUMBAR SPINE 2 OR 3 [...] mild to moderate lumbar spondylosis. DICTATION LOCATION: [address] Alissa Del Toro MD DIAGNOSTIC IMAGING ORDERABLES Fi nal Result * XR THORACIC SPINE 3 VW (09/07/2024 11:54 PM POLICE MANAGER) Anatomical Region Laterality Modality Spine Computed Radiogr aphy 09/07/2024 11:5 4 PM POLICE MANAGER Impressions 09/08/2024 7:35 AM POLICE MANAGER IMPRESSION: 1. Suspected mild to moderate thoracic spondylosis. DICTATION LOCATION: [address] Narrative 09/08/2024 7:35 AM POLICE MANAGER XR THORACIC SPINE 3 VW DATE: 09/07/2024 [...] mild to moderate thoracic spondylosis. DICTATION LOCATION: Location [address] [place] [address] [place] Alissa Del Toro MD DIAGNOSTIC IMAGING ORDERABLES Fi nal Result * XR HIP 2 OR 3 VIEWS LT (09/07/2024 11:50 PM POLICE MANAGER) Anatomical Region Laterality Modality Lower Extremity Left Computed Radiogr aphy 09/07/2024 11:5 0 PM POLICE MANAGER Impressions 09/08/2024 7:26 AM POLICE MANAGER IMPRESSION: 1. Degenerative change in the hips. No acute fracture or dislocation. DICTATION LOCATION: [address] Narrative 09/08/2024 7:26 AM POLICE MANAGER LEFT HIP, TWO VIEWS AND PELVIS AP [...] No acute fracture or dislocation. DICTATION LOCATION: Location [address] [place] [address] us Alissa Del Toro MD DIAGNOSTIC IMAGING ORDERABLES Fi nal Result * PULMONARY FUNCTION TEST (07/30/2024 3:48 PM POLICE MANAGER) 07/30/2024 3:48 PM POLICE MANAGER Narrative INTERFACE SYSTEM - 07/30/2024 5:20 PM POLICE MANAGER [facility] [address] , [place] [address] Test Date: 2024-07-30 Pat Name: RODOLFO VIERA Department: Room: Gender: Female Clerical Stock Inspector: : 1970 Requested By: CHRISTA SINGH Order Number: [id number] Herbie LUBIN: Mando Orellana Interpretive Statements Technologist's Comments: None. Adequate Test. Normal appearing inspiratory and expiratory flow limbs. IMPRESSION: Normal pulmonary function testing. No significant response seen to an inhaled bronchodilator. Electronically Signed On 07-30-2024 17:20:35 POLICE MANAGER by Mando Orellana Procedure Note Provider, Historical - 07/30/2024 [facility] [address] [facility] [place] [address] Test Date: 2024-07-30 Pat Name: RODOLFO VIERA Department: Room: Gender: Female Clerical Stock Inspector: : 1970 Requested By: CHRISTA SINGH Order Number: [id number] Herbie Orellana Interpretive Statements Technologist's Comments: None. Adequate Test. Normal appearing inspiratory and expiratory flow limbs. IMPRESSION: Normal pulmonary function testing. No significant response seen to an inhaled bronchodilator. Electronically Signed On 07-30-2024 17:20:35 POLICE MANAGER by Mando Orellana Christa Singh MD PFT ORDERABLES Final Result INTERFACE SYSTEM Refer to clinic/hospital department * (ABNORMAL) HEMOGLOBIN A1C (06/10/2024 8:12 AM CDT) HEMOGLOBIN A1C 6.6(H) <5.7 % of total Hgb [facility] Comment: For someone without known diabetes, [...] children. ESTIMATED AVERAGE GLUCOSE (MG/DL) 143 mg/dL [facility] ESTIMATED AVERAGE GLUCOSE (MMOL/L) 7.9 mmol/L [facility] Comment: Test Performed at: [facility] [address] [place] [address] Floresita Koch Blood 06/10/2024 8:12 AM CDT 06/10/2024 8:12 AM CDT us Ely Marcus MD CHEMISTRY ORDERABLES Final Resul t [facility] [phone] [facility] [address] [place] [address] * COLONOSCOPY REPORT (04/09/2024 2:16 PM CDT) us Abstract Provider GI PROCEDURE ORDERABLES Final Result [facility]# [id number] [address] [address] * (ABNORMAL) MICROALBUMIN/CREATININE RATIO, RANDOM [...] category. FASTING:YES FASTING: YES Test Performed at: [facility] [address] [place] [address] Floresita Koch MD Urine URINE SPECIMEN OBTAINED BY CLEAN CATCH PROCEDURE / Unknown 12/08/2023 8:42 AM CDT 12/08/2023 8:42 AM CDT Ely Marcus MD URINE ORDERABLES Final Result [facility] [phone] [facility] [address] [address] * MAMMO 3D ANN SCREEN BILAT W OR WO CAD (11/20/2023 7:44 AM CDT) Anatomical Region Laterality Modality Breast Bilateral Other us Abstract Provider MAMMO ORDERABLES Final Result * (ABNORMAL) LIPID PANEL (11/16/2023 8:39 AM CDT) CHOLESTEROL 211(H) <200 mg/dL [facility] HDL 62 > OR = 50 mg/dL [facility] TRIGLYCERIDE 84 <150 mg/dL [facility] LDL CALCULATED 131(H) mg/dL (calc) [facility] Comment: Reference range: <100 Desirable range <100 mg/dL for primary prevention; <70 mg/dL for patients with CHD or diabetic patients with > or = 2 CHD risk factors. LDL-C is now calculated using the Alverto-Chanda calculation, which is a validated novel method providing better accuracy than the Friedewald equation in the estimation of LDL-C. Alverto ROSSI et al. CARMENCITA. 2013;310(19): 8424-9727 (http://education.Farseer.SweetSlap/faq/HLD603) CHOL/HDL RATIO 3.4 <5.0 (calc) [facility] TOTAL NON-HDL CHOL(LDL+VLDL) 149(H) <130 mg/dL (calc) [facility] Comment: For patients with diabetes plus 1 major ASCVD risk factor, treating to a non-HDL-C goal of <100 mg/dL (LDL-C of <70 mg/dL) is considered a therapeutic option. Test Performed at: [facility] [address] [place] [address] Floresita Siegel Vo Blood 11/16/2023 8:39 AM CDT 11/16/2023 8:41 AM CDT us Ely Marcus MD CHEMISTRY ORDERABLES Final Resul t [facility] [phone] [facility] [address] [place] [address] from Last 3 Months or Most Recently Relevant to Health Maintenance Insurance RX WEINBERG PLANS (INTERNAL) [facility] RX RELAYHEALTH Commercial RX CHANGE HEALTHCARE Commercial RX [facility] [employer] O OPEN ACCESS Advance Directives For more information, please contact: [phone] * Full Code (Latest Code Status on File) Date Activated Date Inactivated Comments 10/07/2022 7:39 PM 10/09/2022 7:38 PM Care Teams Lease Picker Relationship Specialty [place] [address] Leon Marshall [facility] [address] [place] [address] PCP - General Internal Medicine 10/08/23
--- OUTSIDE RECORDS SUMMARY | 2024-10-19 09:48 | XMS_ITS | Clinical Summary ---
Author Organization [facility] Address [address] [place] [address] Care Team Providers Care Factory Expert Name Role Phone Claudine Jimenez UTILITY SERVICE WORKER-HEAVY FORGER Primary Care P barb Unavailable Source Comments [facility],non-owned Affiliates and Associated Physician Practices is amultiple site organization consisting of ambulatory clinics and hospital sitesin [place], [place], [place] and [place]. This disclosure is being madepursuant to the Care Everywhere program and may not contain all information available regarding this patient. Last updated 18.[facility] [employer]phatic Social History Tobacco Use Types Packs/Day Years [...] [id number] Comment: ORDERING PHYSICIAN FELISA [facility]KE [facility] SPECIMEN TYPE PAP Smear Date 03/06/1997 Procedure Cervical/Endocervical, 1 smear received Specimen Adequacy Satisfactory for Evaluation Categorization Within Normal Limits Comment Inflammation Present. Snomed. 03/13/1997 1109 <2> Economic Development Coordinator Easton Doherty(ASCP) PAP Footnote The PAP smear [...] Recently Relevant to Health Maintenance Care Teams Factory Expert Relationship Specialty Start Date End Date Claudine Jimenez, UTILITY SERVICE WORKER-HEAVY FORGER PCP - General 02/21/18
--- OUTSIDE RECORDS SUMMARY | 2024-10-19 09:48 | XMS_ITS | Data Portability ---
Author Organization [facility] [place] Address [address] [place] [place] [address] Care Team Providers Care Mental Health Associate Name Role Phone PHILIP VELA Primary Care Provider [phone] Assessment Encounter Date Assessment Date Assessment LastModified [...] a year unless there are new symptoms. 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 Procedures None recorde d. Surgeries None recorde d. Imaging MAMMO, screeni ng, digital , bilater al 2023 024 [facility], [address], [place], [address], 04/13/2024 05:00:58 MAMMO, screeni ng, bilater al 2021 022 [email or web address] [facility], [address], [place], [address], 03/24/2022 16:19:46 Medication Orders None recorde d. Patient TargetsNo targets recorded. Patient InstructionsNo instructions recorded. Reason for Referral None Reported. Results Created Date Observation Date Name Description Value Unit Range Abnormal Flag Note LastModifiedBy Organization Detail LastModifiedTime 06/23/2006/25/2020 cultu re, urine specimen source Urine - Void Not Available [facility] ([facility]) [address], [place], [address], 06/25/2020 06:05:39 06/23/2006/25/2020 cultu re, urine culture, urine See Below No growt h Not Available [facility] ([facility]) [address], [place], [address], 06/25/2020 06:05:39 06/23/2006/23/2020 urina lysis , dipst ick Leukocytes trace Not Available [facility] [address], [place], [address], 06/23/2020 18:12:33 06/23/2006/23/2020 urina lysis , dipst ick pH 9 Not Available [facility] [address], [place], [address], 06/23/2020 18:12:33 10/28/20 20 06/23/2020 urina lysis , dipst ick Specific [place] 1.000 Not Available [facility] [address], [place], [address], 06/23/2020 18:12:33 07/07/20 20 07/09/2020 pap, LB [...] com/s ites/ defau lt/fi les/2 018-0 3/AW- 10724 _002_ 01.pd f for jerel er infor shashi n. Test perfo rmed by [employer], [address], [place] [address] , iDallo Polk ra, DO, [facility] Dire tor. HPV High Risk *HPV NOT [...] and labor atory findi ngs. See https ://Lokata.ru. Metabar/s ites/ defau lt/fi -0 3AW- 76637 _002_ 01.pd f for jerel er infor shashi n. Test perfo rmed by [facility] [employer], [facility], [address], [place] [address] , Diallo Polk ra, DO, [facility] [employer] Dire [employer]. End of Repor t Techn ical servi marisel provi ded by [employer], d/[facility], [address] [place] [address] John Paul Gomes MD, [facility] [employer] Dire tor. Case revie wed and diagn osis rende red at [facility] [employer], d/b/a [facility], [address] [place] [address] John Paul Gomes MD, [facility] Dire tor. CONFI DENTI AL Not Available [facility]) [address], [place], [address], 07/09/2020 09:58:30 07/07/20 20 07/09/2020 HPV DNA, high- risk HPV high risk NOT DETECT ED normal Not Available [facility]) [address], [place], [address], 07/09/2020 09:58:31 02/14/20 22 02/13/2022 IMAGE GUIDE [...] as clini cindy graham nted. Not Available [facility] (Lab) [address], [place], [address], 02/15/2022 21:41:16 04/03/20 22 04/01/2022 MAMMO , scree mariana, bilat eral No observ ation record ed. [facility] [address], [place], [address], 04/04/2022 12:16:39 Result Notes None recorded. Problems Name Problem SNOMED Code Status Onset Date Resolution Date Notes Provider Name and Address Organization Details Recorded Time Susie thyroiditis 11800711 Active 2021 Korin Boone [facility] 2 11:43:58 Diabetes mellitus 69444443 Active 2023 Aye Argueta [facility] 4 09:36:33 Hypertensive disorder 28183385 Active 2023 Aye Argueta [facility] 4 09:36:38 Problem Notes None recorded. Procedures Surgical History Date Name Laterality Status Provider Name and Address Organization Details Recorded Time 10/08/19 24 Date of Last Pap Smear completed [facility] 10/08/2023 09:36:49 09/22/19 14 Dilation and Curettage completed [facility] 10/09/2023 17:25:51 08/27/19 06 termination of completed [facility] 10/09/2023 17:23:59 08/27/19 05 termination of completed [facility] 10/09/2023 17:23:56 08/27/18 98 termination of completed [facility] 10/09/2023 17:23:52 08/27/18 97 extraction of wisdom tooth completed Aye Argueta [facility] 10/08/2023 09:40:46 08/27/18 93 Cholecystectomy completed [facility] 02/13/2022 11:35:36 08/27/18 87 Appendectomy completed [facility] 02/13/2022 11:35:27 Imaging Results Imaging Date Name Status LastModified by Organiz ation Details LastModified Time 04/01/2022 MAMMO, screening, bilateral completed [address], [place], [address], 04/04/2022 12:16:39 Procedure Notes None recorded. Medical Equipment None Reported. Allergies Allergen ID Allergen Name Allergen Category Reaction Reaction Severity Criticality Documentation Date Start Date Code Code System Note Provider Name and Address Organization Details Recorded Time 2531 aspirin medicatio n Not available Not available Not available 06/23/2020 1191 RxNorm Andria [facility] 0 17:54:13 2531 ibuprofen medicatio n Not available Not available Not available 06/23/2020 5640 RxNorm Andria [facility], [facility] 0 17:54:36 Medications Name Sig Start [...] Elsewher e: No Locat ion: [facility] M odify By: jason elkins DateTime : 09/22/19 14 12:06:37 PM [...] Elsewher e: No Locat ion: [facility] odify By: mao elkins DateTime : 06/19/20 17 09:22:40 AM Not Available Not Available Not Available potassium 99 mg tablet 09/25 completed Prescrib ed Elsewher e: Yes [facility] By: jason elkins DateTime : 09/11/19 14 05:15:00 PM Not Available Not Available Not Available Metrogel Vaginal 0.75 % (37.5 mg/5 gram) insert 1 applicat orful by vaginal route every day at bedtime x 5 nights 02/13 completed Prescrib ed Elsewher e: No Locat ion: [facility] odify By: sandip Hines [email or web address] DateTime : 03/12/20 19 09:31:47 AM Not Available Not Available Not Available OneTouch Ultra Test strips active Not Available Not Available Not Available levothyro xine 125 mcg tablet take 1 tablet by oral route every day 03/04 completed Prescrib ed Elsewher e: No Locat ion: Jial[facility]isa [facility] odify By: [email or web address] Encount er DateTime : 03/04/20 19 09:30:00 AM Not Available Not Available Not Available levothyro xine 150 mcg tablet TAKE 1 TABLET BY MOUTH EVERY DAY 10/08 completed Not Available Not Available Not Available Valtrex 500 mg tablet take 1 tablet by oral route 1 times every 12 hours x 3 days 02/13 completed Prescrib ed Elsewher e: No Locat ion: [facility] odify By: laura pham DateTime : 03/04/20 [...] Updated DateTime 02/13/2022 166.37 cm 36.9 kg/m2 239777.2 8 g 121 mm[Hg] 75 mm[Hg] Korin Monetse [facility] 2 11:43:25 Date Recorded Body height Body mass index (BMI) Body weight Systolic blood pressure Diastolic blood pressure Provider Name and Address Organization Details Last Updated DateTime 10/08/2023 166.37 cm 32.4 kg/m2 41597.29 g 129 mm[Hg] 78 mm[Hg] Aye Argueta [facility] 4 09:35:46 Date Recorded Body height Body mass index (BMI) Body weight Systolic blood pressure Diastolic blood pressure Provider Name and Address Organization Details Last Updated DateTime 07/07/2020 166.37 cm 34.9 kg/m2 60400.17 g 118 mm[Hg] 78 mm[Hg] Corinna Carver [facility] 0 11:55:35 Social History Question Answer Notes LastModified by Organizat ion Details LastModified Time Tobacco Smoking Status Never Smoker Korin Boone [facility], [facility] 02/13/2022 11:35:15 What Is Your Level Of Alcohol Consumption? Occasional Information not available 02/13/2022 Are You Blind Or Do You Have Difficulty Seeing? No Information n ot available 02/13/2022 In The 14 Days Before Symptom Onset, Have You Had Close Contact With A Laboratory-confirm ed COVID-19 While That Case Was Ill? No [email or web address] Information n ot available 10/08/2023 In The 14 Days Before Symptom Onset, Have You Had Close Contact With A Person Who Is Under Investigation For COVID-19 While That Person Was Ill? No Information not available 10/08/2023 Have You Been To An Area Known To Be High Risk For COVID-19? No [email or web address] Information not available 10/08/2023 Are You Deaf Or Do You Have Serious Difficulty Hearing? No Information not available 02/13/2022 What Type Of Diet Are You Following? REGULAR Information n ot available 02/13/2022 Have You Ever Been Counseled For Unhealthy Alcohol Use? No [email or web address] Information not available 10/08/2023 Do You Use Your Seat Belt Or Car Seat Routinely? Yes [email or web address] Information not available 10/08/2023 Do You Have Smoke And Carbon Monoxide Detectors In Your Home? Yes [email or web address] Information not available 10/08/2023 Do You Feel Stressed (tense, Restless, Nervous, Or Anxious, Or Unable To Sleep At Night)? [id number] [email or web address] Information not available 10/08/2023 Do You Use Any Illicit Or Recreational Drugs? No [email or web address] Information not available 10/08/2023 Do You Use Sunscreen Routinely? Yes [email or web address] Information not available 10/08/2023 Has Tobacco Cessation Counseling Been Provided? No [email or web address] Information not available 10/08/2023 Do You Or Have You Ever Used Any Other Forms Of Tobacco Or Nicotine? No [email or web address] Information not available 10/08/2023 Sex: Unknown Functional [...] SNOMED-CT Code Diagnosis ICD10 Code Diagnosis Note [id number] Waylon Byrne MD [place] [address] [address] 06/23/2020 17:55:08 06/23/2020 18:24:56 Leukocytes in urine 363822594 R82.79 Urinary symptoms 7527674 08 R39.9 [id number] [facility] [address] [address] 07/07/2020 11:45:53 07/07/2020 14:05:39 Gynecologic examination 42738350 Z01.419 Suggested Calcium with Vitamin D 1200-1500m g daily. Patient advised to get an annual flu shot in the fall and she could obtain at [facility] or [facility] care clinic. Also [...] x 1yr or prn Bacterial vaginosis 4197 85700 N76.0 Mentions issues with recurrent BV Tried Boric acid in the past vaginally & unable to tolerate. Reports it makes her nauseated even though it is administer ed PV. Usually happens after menses. Feeling okay today. Moving forward consider [facility] vulvar clinic referral VCG sheet given for review. [id number] PHI Lazo [place] [address] [address] 02/13/2022 11:26:10 02/13/2022 12:21:01 Screening for malignant neoplasm of breast 865071692 Z12.39 Gynecologi c examination 93068307 Z01.419 Suggested Calcium with Vitamin D 1200-1500m g daily. Patient advised to get an annual flu shot in the fall and she could obtain at [facility] or [facility] take care clinic. Also to obtain TDap [...] year for WWE or sooner if needed [id number] PHI Lazo [place] [address] [address] 10/08/2023 09:13:32 10/08/2023 10:10:40 Gynecologic examination 81498081 Z01.419 WWEpap due 2024mammog diane order givencolon oscopy UTDroutine labs UTD/PCPRTC in 1 yr or sooner if needed Take Calcium with Vitamin D daily. Do monthly self breast exams. It is advised to get annual flu shot in the fall and she could obtain at [facility] or [facility] care clinic. If [...] email Screening for malignant neoplasm of breast 966795420 Z12.39 Perimenopausal state 926 3830577 99102 Z78.0 Discussed the perimenopa usal transition in-depthen [...] Member ID Guarantor Name 06/23/2020 1 [employer] [id number] Emelia Campbell [id number] Emelia Campbell 07/07/2020 1 [employer] [id number] Emelia Campbell [id number] Emelia Campbell 02/13/2022 1 [employer] - DOS ON OR AFTER 21 - [facility] [employer]EF[facility] (PPO) Emelia Campbell [id number] SOI Emelia Campbell 10/08/2023 1 [employer] - DOS ON OR AFTER 21 - [facility] (PPO) Emelia Campbell [id number] SOI Emelia Campbell Notes Date Note Type [...] okay today. PHI [facility]- [address], [place], [address], [facility] 07/07/2020 12:27:30 02/13/2022 text/html Annual GYNReport [...] age 42 PHI Lazo [address], [place], [address], [facility] 02/13/2022 12:08:51 10/08/2023 text/html Annual GYNReport [...] 2colonoscopy UTD PHI [facility] [address], [place], [address], [facility] 10/08/2023 09:53:22 OBGyn Episode Ob Episode Information Episode Created Date Number of Fetuses Patient Bloodtype Patient rh Status Prepregnancy Weight lbs Domestic Partner Domestic Partner Phone Father Name Data Officer Status 02/14/20 22 1 CLOSED Fetus Data First Name Last Name Admitted to NICU Weight (g) Sex Living Outcome Pediatric Complications Fetus ID Race Codes Race Delivery Type , Spontane ous 75055 Nick Calculation Initial Nick Date Initial Exam [...] Domestic Partner Domestic Partner Phone Father Name Data Officer Status 02/14/20 22 1 CLOSED Fetus Data First Name Last Name Admitted to NICU Weight (g) Sex Living Outcome Pediatric Complications Fetus ID Race Codes Race Delivery Type 3600.15 9704 M Full Term 96568 Vaginal Delivery Nick Calculation Initial Nick Date [...] Domestic Partner Domestic Partner Phone Father Name Data Officer Status 02/14/20 22 1 CLOSED Fetus Data First Name Last Name Admitted to NICU Weight (g) Sex Living Outcome Pediatric Complications Fetus ID Race Codes Race Delivery Type 2834.95 M Full Term 97641 Vaginal Delivery Nick Calculation Initial Nick Date [...] Domestic Partner Domestic Partner Phone Father Name Data Officer Status 02/14/20 22 1 CLOSED Fetus Data First Name Last Name Admitted to NICU Weight (g) Sex Living Outcome Pediatric Complications Fetus ID Race Codes Race Delivery Type , Induced 63077 Nick Calculation Initial Nick Date Initial Exam [...] Domestic Partner Domestic Partner Phone Father Name Data Officer Status 02/14/20 22 1 CLOSED Fetus Data First Name Last Name Admitted to NICU Weight (g) Sex Living Outcome Pediatric Complications Fetus ID Race Codes Race Delivery Type , Induced 16108 Nick Calculation Initial Nick Date Initial Exam [...] Domestic Partner Domestic Partner Phone Father Name Data Officer Status 02/14/20 22 1 CLOSED Fetus Data First Name Last Name Admitted to NICU Weight (g) Sex Living Outcome Pediatric Complications Fetus ID Race Codes Race Delivery Type 4082.32 8 M Full Term 94935 Vaginal Delivery Nick Calculation Initial Nick Date [...] Domestic Partner Domestic Partner Phone Father Name Data Officer Status 02/14/20 22 1 CLOSED Fetus Data First Name Last Name Admitted to NICU Weight (g) Sex Living Outcome Pediatric Complications Fetus ID Race Codes Race Delivery Type 3628.73 6 M Full Term 85693 Vaginal Delivery Nick Calculation Initial Nick Date [...] Domestic Partner Domestic Partner Phone Father Name Data Officer Status 02/14/20 22 1 CLOSED Fetus Data First Name Last Name Admitted to NICU Weight (g) Sex Living Outcome Pediatric Complications Fetus ID Race Codes Race Delivery Type , Spontane ous 44477 Nick Calculation Initial Nick Date Initial Exam [...] Domestic Partner Domestic Partner Phone Father Name Data Officer Status 02/14/20 22 1 CLOSED Fetus Data First Name Last Name Admitted to NICU Weight (g) Sex Living Outcome Pediatric Complications Fetus ID Race Codes Race Delivery Type , Induced 89298 Nick Calculation Initial Nick Date Initial Exam [...]
== END 2024-10-19 09:42 | disposition home or self-care (01) ==
PROVIDERS: Visit Provider Chiropractor Rehabilitation
DX: S16.1XXA Strain of muscle, fascia and tendon at neck level, initial encounter (principal); S06.0X0A Concussion without loss of consciousness, initial encounter; X58.XXXA Exposure to other specified factors, initial encounter; M47.892 Other spondylosis, cervical region
CPT/HCPCS: 70551; 72141

== ENCOUNTER 2025-05-14 14:08 | Emergency (ER) | payer OTHER, SELFPAY ==
[2025-05-14 14:21] VITALS: BP 119/79; PULSE 75; RESP 16; TEMP 36.6
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
== END 2025-05-14 15:27 | disposition home or self-care (01) ==
PROVIDERS: Emergency Provider Registered Nurse
DX: F41.9 Anxiety disorder, unspecified (principal); E07.9 Disorder of thyroid, unspecified
CPT/HCPCS: 99211; G0463